=== PATIENT | female | born 1995 | race Caucasian/White ===

== ENCOUNTER 2022-10-07 13:13 | Emergency (ER) | payer OTHER ==
--- OUTSIDE RECORDS SUMMARY | 2022-10-07 13:18 | XMS REPORT | Continuity of Care Document ---
:1995 Author Organization [facility] t Address [address] [place] [address] Care Team Providers Name Role Phone SHARPLESS Primary Care Physician Unavailable LESTER GAN Attending Clinician Unavailable COMPA BRAVO Attending Clinician Unavailable FROYLAN PAYTON Attending Clinician Unavailable COMPA ESCOBEDO Attending Clinician Unavailable Librado Cruz MD Attending Clinician Nader Bell MD Attending Clinician [phone] Attending Clinician Unavailable ARGELIA ELLISON Attending Clinician Unavailable MARY ELISE Attending Clinician Unavailable GRACE MONTEJO Attending Clinician Unavailable ADINA CHACON Attending Clinician Unavailable GUDELIA MALONE Attending Clinician Unavailable ZAIRE LI Admitting Clinician Unavailable SULMA MONTIEL Admitting Clinician Unavailable Payers Payer Name Policy Type Policy Number Effective Date Expiration Date Kwadwo CARDENAS PPO [id number] 2022 00:00:00 [employer] 2 [id number] 2021 00:00:00 MUTUAL INS [facility] CIGPO [id number] 2020 00:00:00 PPO Problems Condition Condition Condition Status Onset Resolution Last Treating Co mments Source Name Details Category Date Date Treatment Clinician Date Gastropare Gastropare Disease Active [facility]: Medical [place] Unintentio Unintentio Disease Active [facility] nal weight nal weight 4-14 Debra k[facility] loss loss 00:00: [place] Dehydratio Dehydratio Disease Active [facility] n n 4-14 [facility] 00:00: [place] Epigastric Epigastric Disease Active [facility] pain pain 4-14 [facility] 00:00: Center Failure to Failure to Disease Active [facility] thrive in thrive in 4-13 [facility] adult adult 00:00: 00 Center Unable to Unable to Disease Active Overview: [facility]-13 [facility] 00:[facility]: g of this Medical 00 note Center might be different from the original. Added automatic ally from request for surgery [id number] Sterilizat Sterilizat Disease Active [facility] ion ion 3-01 [facility] 00:00: Medical 00 Center Abdominal Abdominal Disease Active [facility] 9[facility]18 [facility] affecting affecting 00:00: Medi [place] , , 00 Ce nter antepartum antepartum Allergies, Adverse Reactions, Alerts Allergy Allergy Status Severity Reaction(s) Onset Inactive Treating Comm ents Source Name Type Date Date Clinician No Known DA Active [facility] [place] [facility] 00:[facility]: [facility] 00 [facility] No Known DA Active [facility]ie 3[facility]23 [place] 00:[facility]: [facility]a 00 [facility] Vilazodo Propensi Active seizures [facility] to 9-18 [facility] adverse 00:00: Medical reaction 00 Center s VILAZODO Allergy Active [facility] NE 9-18 00:00: 00 Family History Family Member Diagnosis Comments Start Date Stop Date Source Natural mother Depression [facility] Natural mother Diabetes [facility] Natural mother Mental illness [facility] Social History Social Habit Start Date Stop Date Quantity Comments Source History SDOH [facility] Alcohol Frequency Medical Center History SDOH [facility] Alcohol Std Drinks Medica l Center History SDOH [facility] Alcohol Binge Medical X[facility] History of tobacco Smokes tobacco Me [facility]odist use daily Hospital Tobacco Comment 2021-01-19 2021-01-19 vape [facility] Elmer kes 00:00:00 00:00:00 [facility] Alcohol intake 2018-01-07 2018-01-07 Current Jew 00:00:00 00:00:00 non-drinker of Hospital alcohol (finding) Alcohol Comment 2016-11-30 2016-11-[address] [facility] St Debra kes 00:00:00 00:00:00 [facility] Tobacco use and 2016-06-26 2016-06-[address] [facility] [place] exposure 00:00:00 00:00:00 [facility] Sex Ass[birth year] At [birth year] Jew 00:00:00 00:00:00 Hospital Smoking Status Start Date Stop Date Source Smokes tobacco daily 2018-01-07 00:00:00 [facility] Former smoker 2016-06-26 00:00:00 2016-06-26 00:00:00 [facility] Medications Ordered Filled Start Stop Current Ordering Indication Dosage Frequency Signature Comments Components Source Medication Medication Date Date Medication? Clinician (SIG) Name Name naproxen 2021- No 500mg Q.5D Take 1 Metho di (NAPROSYN) 3-15 04-[address] 500 MG 00:00: 04:59 (500 mg Hospita tablet 00 :00 total) by l mouth 2 (two) times a day with meals for 30 days. ondansetron 2021- No 4mg Q6H Take 1 Met hodi (ZOFRAN) 4 3-15 04-15 tablet (4 st MG tablet 00:00: 04:59 mg total) Ho spita 00 :00 by mouth l every 6 (six) hours for 30 days. traMADoL 2021- No [id number] 50mg Q6H Take 1 Metho di (ULTRAM) 50 3-15 03-21 tablet (50 s t mg tablet 00:00: 04:59 mg total) Ho spita 00 :00 by mouth l every 6 (six) hours as needed for moderate pain for up to 5 days .acute pain. OLANZapine 0 Yes 7.5mg QD Take 7.[address] (ZYPREXA) 9-02 mg by [facility] 7.5 MG 18:01: mouth Medical tablet 45 nightly. Center ondansetron 0 Yes 4mg Take [address] (ZOFRAN) 4 7-08 by mouth. Luke s MG tablet 00:00: Medical 00 Center ondansetron 0 Yes 4mg Q8H Take 1 Meth wade (ZOFRAN) 4 7-08 tablet (4 st MG tablet 00:00: mg total) Hos arelis 00 by mouth l every 8 (eight) hours as needed for nausea or vomiting. scopolamine 0 2- No 1.5mg Place [address] (TRANSDERM- 4-17 04-17 patch (1.5 L ukes SCOP) 1 mg 00:00: 23:59 mg total) M edical over 3 days 00 :00 onto the Cent er patch skin every third day. mirtazapine Yes 15mg QD Take [address] (REMERON 3-29 by mouth [facility] YESENIA-TAB) 15 00:00: nightly. Me dical MG 00 Center disintegrat ing tablet clonazePAM Yes 2mg Q.5D Take [address] (KlonoPIN) 3-18 by mouth 2 Rio es 2 MG tablet 00:00: (two) Medic al 00 times Center daily. busPIRone 0 Yes 10mg Q.5D Take [address] (BUSPAR) 10 3-03 by mouth 2 Debra kes MG tablet 00:00: (two) Medical 00 times Center daily . desvenlafax Yes 50mg QD Take [address] ine 3-03 by mouth [facility]ukes succinate 00:00: daily. Medica l (PRISTIQ) 00 Center 50 MG 24 hr tablet PRAZOSIN Yes 2mg QD Take 2 mg Meth wade HCL 4-[address] (PRAZOSIN 11:14: nightly. Hosp audi ORAL) 17 l QUEtiapine 2018-0 Yes 200mg QD Take 200 Me thodi fumarate ER 4-[address] 50 mg 11:14: mouth Hospita tablet 17 daily. l extended release 24 hr clonAZEPAM 2018-0 Yes 1mg Q.2D Take 1 mg Me thodi (KlonoPIN) 4-[address] 1 MG tablet 11:14: (five) Hosp audi 17 times a l day. Immunizations Ordered Immunization Filled Immunization Date Status Commen ts Source Name Name Covid-19 Vaccine 2021-01-[address] [facility] MRNA (PF) 12yr+ 00:00:00 Medical C enter (Pfizer/BioNTech)(IM M601) MMR 2016-06-29 [facility] Vital Signs Vital Name Observation Time Observation Value Comments Source HEIGHT 2021-06-10 17:58:00 162.6 cm WEIGHT 2021-06-10 17:58:00 50.5 kg HEIGHT 2021-06-10 17:58:00 162.6 cm WEIGHT 2021-06-10 17:58:00 50.5 kg HEIGHT 2021-01-28 08:08:00 154.9 cm WEIGHT 2021-01-28 08:08:00 34.473 kg HEIGHT 2021-01-24 16:00:00 154.9 cm WEIGHT 2021-01-24 16:00:00 34.473 kg HEIGHT 2021-01-28 08:08:00 154.9 cm WEIGHT 2021-01-28 08:08:00 34.473 kg HEIGHT 2021-01-24 16:00:00 154.9 cm WEIGHT 2021-01-24 16:00:00 34.473 kg HEIGHT 2021-01-21 07:30:00 154.9 cm WEIGHT 2021-01-21 07:30:00 39.463 kg WEIGHT 2021-01-20 06:00:00 39.78 kg HEIGHT 2021-01-20 06:00:00 154.9 cm HEIGHT 2021-01-19 19:22:00 154.9 cm WEIGHT 2021-01-19 19:22:00 35.2 kg HEIGHT 2021-01-21 07:30:00 154.9 cm WEIGHT 2021-01-21 07:30:00 39.463 kg WEIGHT 2021-01-20 06:00:00 39.78 kg HEIGHT 2021-01-20 06:00:00 154.9 cm HEIGHT 2021-01-19 19:22:00 154.9 cm WEIGHT 2021-01-19 19:22:00 35.2 kg HEIGHT 2020-12-31 16:03:00 154.9 cm WEIGHT 2020-12-31 16:03:00 38.556 kg HEIGHT 2020-12-31 16:03:00 154.9 cm WEIGHT 2020-12-31 16:03:00 38.556 kg Systolic blood 2021-12-21 11:07:00 102 mm[Hg] [facility] pressure Diastolic blood 2021-12-21 11:07:00 69 mm[Hg] [facility] pressure Heart rate 2021-12-21 11:07:00 68 /min [facility] Respiratory rate 2021-12-21 11:07:00 16 /min [facility] Oxygen saturation in 2021-12-21 11:07:00 99 /min [facility] Arterial blood by Pulse oximetry Body temperature 2021-12-21 10:04:42 36.44 Laenna [facility] Body height 2021-12-21 10:02:00 154.9 cm [facility] Body weight 2021-12-21 10:02:00 52.164 kg [facility] BMI 2021-12-21 10:02:00 21.73 kg/m2 [facility] Procedures Procedure Date / Time Performing Clinician Source Performed US PELVIC TRANSABDOMINAL 2021-12-21 11:48:27 Librado Cruz [facility] US PELVIC TRANSVAGINAL 2021-12-21 11:47:46 [facility] PELVIS W 2021-12-21 10:50:49 Librado Cruz [facility] CONTRAST URINE CULTURE 2021-12-21 10:19:00 [facility] HC COMPLETE BLD COUNT 2021-12-21 10:18:00 [facility] W/AUTO DIFF COMPREHENSIVE METABOLIC 2021-12-21 10:18:00 Librado Cruz [facility] PANEL ESTIMATED GFR 2021-12-21 10:18:00 Librado Cruz [facility] URINALYSIS 2021-12-21 10:13:00 Librado Cruz [facility] HCG QUALITATIVE, URINE 2021-12-21 10:13[facility] S[facility]EN Plan of Care Planned Activity Planned Date Details Comments Source Future Scheduled 2026-05-09 DTAP/TDAP/TD VACCINES [facility] Test 00:00:00 (5 - Td or Tdap) [code Medic al Center = DTAP/TDAP/TD VACCINES (5 - Td or Tdap)] Future Scheduled 2022-10-07 Pneumococcal Vaccine: [facility] Test 13:16:25 Pediatrics (0 to 5 Years) and At-Risk Patients (6 to 64 Years) (1 - PCV) [code = Pneumococcal Vaccine: Pediatrics (0 to 5 Years) and At-Risk Patients (6 to 64 Years) (1 - PCV)] Future Scheduled 2022-10-07 Hepatitis C screening [facility] Test 13:16:25 (procedure) [code = 861928251] Future Scheduled 2022-10-07 Screening for [facility] Test 13:16:25 malignant neoplasm of cervix (procedure) [code = 627547829] Future Scheduled 2022-10-07 COVID-19 VACCINE (2 - [facility] Test 13:16:25 Pfizer series) [code = COVID-19 VACCINE (2 - Pfizer series)] Future Scheduled 2022-10-07 INFLUENZA VACCINE Method [facility] Test 13:16:25 [code = INFLUENZA VACCINE] Future Scheduled 2022-06-[address] [facility] Test 00:00:00 Counseling and Medical Cente r Screening (12+) [code = Tobacco Cessation Counseling and Screening (12+)] Future Scheduled 2022-06-09 INFLUENZA VACCINE (#1) [facility] Test 00:00:00 [code = INFLUENZA Medical Ce nter VACCINE (#1)] Future Scheduled 2021-10-[address] [facility] Test 00:00:00 (12+) [code = Medical Center DEPRESSION SCREENING (12+)] Future Scheduled 2021-02-04 COVID-19 VACCINE (2 - [facility] Test 00:00:00 Pfizer series) [code = [facility] COVID-19 VACCINE (2 - Pfizer series)] Future Scheduled [address] [facility] Test 00:00:00 malignant neoplasm of [facility] cervix (procedure) [code = 731616366] Future Scheduled 2011 HEPATITIS C SCREENING [facility] Test 00:00:00 [code = HEPATITIS C [facility] SCREENING] Encounters Start End Encounter Admission Attending Care Care Encounter Source Date/Time Date/Time Type Type Clinicians Facility Department ID 2022-02-07 Outpatient [facility] [id number] [place] 09:09:12 [id number] [facility] 2020-12-29 Inpatient [facility] [id number] [facility] 22:14:08 69 [facility] 2022-05-23 2022-05-23 Outpatient LAWRENCE COMPA MADINA CHILEL [id number] [place] 15:00:00 15:00:00 Seybol d 2022-02-16 2022-02-16 Emergency E FITO, MHTW MHTW [id number] MHTW 01:14:00 04:55:00 FROYLAN 2022-01-19 2022-01-20 Emergency E FANNY, MHTW MHTW [id number] MHTW 22:46:00 00:05:00 COMPA 2021-12-21 2021-12-21 Emergency Librado Cruz C. [id number] Methodi 05:09:00 07:34:[address] Nader Bell [id number] [id number] Hospit a .[id number] l .8 2021-12-21 2021-12-21 Emergency LISETTE [facility] [id number] [place] 00:00:00 00:00:00 NADER Galeas [facility] 2021-11-01 2021-11-01 Outpatient ALB22-ELH MADINA CHILEL [id number] [place] 17:10:00 17:10:00 Seybol d 2021-11-01 2021-11-01 Outpatient MADINA ELLISON [id number] [place] 16:00:00 16:00:00 ARGELIA landrum 2021-06-10 2021-06-10 Emergency ER [facility] Emergency [id number] [facility] 17:47:00 17:47:00 2021-04-14 2021-04-15 Emergency NIKIA, [facility] Liane [id number] [place] 00:00:00 00:00:00 GRACE Devin [facility] 2021-02-04 2021-02-04 Outpatient [facility] [id number] [facility] 00:00:00 00:00:00 2021-01-24 2021-01-24 Emergency ER [facility] Emergency [id number] [facility] 15:29:00 15:29:00 2021-01-19 2021-01-19 Emergency ER [facility] Emergency [id number] [facility] 18:56:00 18:56:00 2021-01-14 2021-01-14 Outpatient [facility] [id number] [facility] 00:00:00 00:00:00 2020-12-31 2020-12-31 Emergency ER [facility] Emergency [id number] [facility] 15:37:00 15:37:00 2017-09-29 2017-09-29 Outpatient DISHA DRAPER [id number] [place] 12:04:00 12:04:00 01 ayden Coleman 2017-09-13 2017-09-13 Outpatient DISHA DRAPER [id number] [place] 12:58:00 12:58:00 00 ayden Coleman Results Test Description Test Time Test Comments Results Result Sourc e Comments RAD, CHEST, 1 2021-06-10 Reason for VIEW, NON DEPT 21:10:00 exam:->CHEST PAINReason for CHI exam:->EMESISIs [facility] the patient CENTERName: SKYLER, ?->N/Tatianna MARION THACKER : ould this be 1995 Sex: performed at the F bedside?->Yes FI NAL REPORT EXAM/TECHNIQUE: Single view frontal radiograph of the chest. INDICATION: Chest pain, emesis. COMPARISON: None. FINDINGS: Devices/Objects: None. Lungs: No focal consolidation. No pleural effusion. No pneumothorax. Heart/Mediastinum: No cardiomegaly. No interstitial thickening. Osseous: No acute osseous process. No suspicious osseous lesion. Upper abdomen: Unremarkable. Impression: No acute cardiopulmonary process. Signed: Jaswinder Townsend MDReport Verified Date/Time: 06/10/2021 21:10:14 -COV2/RT-PCR ([facility]) 2021-06-10 21:08:00 Test Item Value Reference Range Interpretation Comme nts SARS-COV2/RT-PCR (test code = Negative Negative The SARS-CoV-2 target nucleic [id number]) acids are not d etected in this specimen. Negat luis antonio results do not preclude SA RS-CoV-2 infection and s hould not be used as the sole bas is for patient management deci sions. Negative results must be combined with clinical observ ations, patient history, and ep idemiological information. A false negative result may occu r if a specimen is improperly c ollected, transported or handled. This SARS CoV-2 test is a rapid, real-time RT-PC R test intended for the qualita tive detection of nucleic acid fr om SARS-CoV-2 in a nasopharyngea l swab specimen collected from individuals suspected of CO VID-19 by their healthcare doctors hospital ider. This test has been authorized by FDA under an EUA for use by authorized laboratories. This test is only authorized for the duration of the declaration that circumstances exist justifying the authorization of emergency use of in vitro diagnostic tests for detection and/or diagnosis of COVID-19 under Section 564(b)(1) of the Federal Food, Drug and Cosmetic Act, 21 U.S.C. 360bbb-3(b)(1), unless the authorization is terminated or revoked sooner. Fact Sheet for Healthcare Providers: https://www.[employer] m/Documents/Xpert%20Xpress%20SARS%20CoV-2/Fact%20Sheets/302-3802%28QDTY-CYP-6%20 HEALTHCARE%20PROVIDERS%20FACT%20SHEET.pdf Fact Sheet for Healthcare Patients: https://www.OptMed/Documents/Xpert%20Xp ress%20SARS%20CoV-2/Fact%20Sheets/302-3801%31KNQC-DPL-7%20PATIENT%20FACT%20SHEET .pdfURINALYSIS W/ REFLEX URINE [id number] 20:49:00 Test Item Value Reference Range Interpretation Comments COLOR (BEAKER) (test code = 470) Yellow CLARITY (BEAKER) (test code = 469) Hazy SPECIFIC GRAVITY UA (BEAKER) (test 1.031 1.001-1.035 code = 468) PH UA (BEAKER) (test code = 467) 6.0 5.0-8.0 PROTEIN UA (BEAKER) (test code = 30 mg/dL Negative A 464) GLUCOSE UA (BEAKER) (test code = Negative Negative 365) KETONES UA (BEAKER) (test code = 20 mg/dL Negative A 371) BILIRUBIN UA (BEAKER) (test code = Negative Negative 462) BLOOD UA (BEAKER) (test code = 461) Negative Negative NITRITE UA (BEAKER) (test code = Negative Negative 465) LEUKOCYTE ESTERASE UA (BEAKER) (test Negative Negative code = 466) UROBILINOGEN UA (BEAKER) (test code < mg/dL 0.2-1.0 = 463) RBC UA (BEAKER) (test code = 519) 3 /HPF WBC UA (BEAKER) (test code = 520) 2 /HPF BACTERIA (BEAKER) (test code = 517) Rare MUCUS (BEAKER) (test code = 1574) Few SQUAMOUS EPITHELIAL (BEAKER) (test 5 /HPF code = 516) SOURCE(BEAKER) (test code = 2795) Incident Response Specialist ID - [auto]Incident Response Specialist ID - techPREGNANCY SCREEN, [id number] 20:33:00 Test Item Value Reference Range Interpretation Comments TEST URINE (BEAKER) (test Negative code = 583) TROPONIN [id number] 20:08:00 Test Item Value Reference Range Interpretation Comments TROPONIN I (BEAKER) (test code = 0.01 ng/mL 0.00-0.15 397) Troponin I (TnI) levels must be interpreted in the context of the presenting symptoms and the clinical findings. Elevated TnI levels indicate myocardial damage, but are not specific for ischemic heart disease. Elevated TnI levels are seen in patients with other cardiac conditions (including myocarditis and congestive heart failure), and slight TnI elevations occur in patients with other conditions, including sepsis, renal failure, acidosis, acute neurological disease, and persistent tachyarrhythmia.Incident Response Specialist ID - [id number] METABOLIC [id number] 20:02:00 Test Item Value Reference Range Interpretation Comments TOTAL PROTEIN 8.2 gm/dL 6.0-8.5 (BEAKER) (test code = 770) ALBUMIN (BEAKER) 4.7 g/dL 3.5-5.0 (test code = 1145) ALKALINE PHOSPHATASE 64 U/L 30-115 (BEAKER) (test code = 346) BILIRUBIN TOTAL 0.4 mg/dL 0.1-1.3 (BEAKER) (test code = 377) SODIUM (BEAKER) (test 141 meq/L 135-148 code = 381) POTASSIUM (BEAKER) 3.9 meq/L 3.5-5.5 (test code = 379) CHLORIDE (BEAKER) 104 meq/L 98-106 (test code = 382) CO2 (BEAKER) (test 23 meq/L 20-31 code = 355) BLOOD UREA NITROGEN 16 mg/dL 10-26 (BEAKER) (test code = 354) CREATININE (BEAKER) 0.77 mg/dL 0.50-1.20 (test code = 358) GLUCOSE RANDOM 83 mg/dL 70-110 (BEAKER) (test code = 652) CALCIUM (BEAKER) 9.8 mg/dL 8.5-10.5 (test code = 697) AST (SGOT) (BEAKER) 18 U/L 5-40 (test code = 353) ALT (SGPT) (BEAKER) 10 U/L 6-50 (test code = 347) EGFR (BEAKER) (test 89 mL/min/1.73 ESTIMA ROSENDO GFR IS code = 1092) sq m NOT ACCURATE CREATININE CLEARANCE IN PREDICTING GLOMERULAR FILTRATION RATE . ESTIMATED GFR I S NOT APPLICABLE FOR DIALYSIS PATIEN TS. Incident Response Specialist ID - [id number] 19:55:00 Test Item Value Reference Range Interpretation Comments D-DIMER QUANTITATIVE (BEAKER) 0.22 MG/L FEU <0.50 (test code = 671) Intended Use: The D-Dimer Assay can be used to aid in the diagnosis of Deep Vein Thrombosis (DVT) and Pulmonary Embolism Disease (PED).In patients with low pre- test probability, various studies concerning STA Liatest D-dimer test have reported that with a cutoff value of 0.50 MG/L FEU, the Negative Predictive Value (NPV) regarding the exclusion of thrombosis is within 95-100% range.CBC W/PLT COUNT & AUTO [id number] 19:42:00 Test Item Value Reference Range Interpretation Comments WHITE BLOOD CELL COUNT (BEAKER) 10.9 K/ L 4.0-10.0 H (test code = 775) RED BLOOD CELL COUNT (BEAKER) 4.60 M/ L 4.00-5.00 (test code = 761) HEMOGLOBIN (BEAKER) (test code = 14.7 GM/DL 12.0-15.5 410) HEMATOCRIT (BEAKER) (test code = 42.2 % 36.0-46.0 411) MEAN CORPUSCULAR VOLUME (BEAKER) 91.7 fL 82.0-99.0 (test code = 753) MEAN CORPUSCULAR HEMOGLOBIN 32.0 pg 27.0-33.0 (BEAKER) (test code = 751) MEAN CORPUSCULAR HEMOGLOBIN CONC 34.8 GM/DL 32.0-36.0 (BEAKER) (test code = 752) RED CELL DISTRIBUTION WIDTH 11.8 % 12.0-15.0 L (BEAKER) (test code = 412) PLATELET COUNT (BEAKER) (test 275 K/CU MM 150-430 code = 756) MEAN PLATELET VOLUME (BEAKER) 9.9 fL 6.0-11.5 (test code = 754) NUCLEATED RED BLOOD CELLS 0 /100 WBC 0-0 (BEAKER) (test code = 413) NEUTROPHILS RELATIVE PERCENT 65 % (BEAKER) (test code = 429) LYMPHOCYTES RELATIVE PERCENT 29 % (BEAKER) (test code = 430) MONOCYTES RELATIVE PERCENT 5 % (BEAKER) (test code = 431) EOSINOPHILS RELATIVE PERCENT 0 % (BEAKER) (test code = 432) BASOPHILS RELATIVE PERCENT 1 % (BEAKER) (test code = 437) NEUTROPHILS ABSOLUTE COUNT 7.14 K/ L 1.80-8.00 (BEAKER) (test code = 670) LYMPHOCYTES ABSOLUTE COUNT 3.14 K/ L 1.48-4.50 (BEAKER) (test code = 414) MONOCYTES ABSOLUTE COUNT (BEAKER) 0.52 K/ L 0.00-1.30 (test code = 415) EOSINOPHILS ABSOLUTE COUNT 0.04 K/ L 0.00-0.50 (BEAKER) (test code = 416) BASOPHILS ABSOLUTE COUNT (BEAKER) 0.06 K/ L 0.00-0.20 (test code = 417) IMMATURE GRANULOCYTES-RELATIVE 0 % 0-0 PERCENT (BEAKER) (test code = 2801) RAD, ABDOMEN/KUB, 1 VIEW [id number] 16:12:00Reason for exam:- >obstructionShould this be performed at the bedside?->Yes [facility] 1995 Sex: FFINAL REPORT X-ray abdomen, one view AP History: obstruction Comparison: 01/20/2021 and 01/26/2021. Discussion: No dilated loops of bowel are identified. Gaseous distention of the sigmoid colon is noted. Moderate stool is noted throughout the right colon.No acute osseous abnormality.No suspicious calcification. IMPRESSION: Nonobstructive bowel gas pattern. Air is identified within the distal colon and stool is identified within the proximal colon, nonspecific. Signed: Paulette ReisMDReport Verified Date/Time: 01/28/2021 16:12:19 Reading Location: [facility] Radiology Reading Room RAD, ABDOMEN/KUB, 1 VIEW AP 2021-01-26 15:50:00Reason for exam:->Enteric tube placement verification [facility] 1995 Sex: FFINAL REPORT Abdomen x-ray Clinical Diagnosis: Enteric tube placementComparison: 01/20/2021Views: Single supine view the abdomen obtained IMPRESSION:Enteric tube identified coursing below the diaphragm with distal tip terminating within the left upper quadrant in the expected region of the gastric body. There is moderate gaseous distention of the stomach. Remainder of the examination is unchanged from prior examination. Signed: Bartolo Aiken MDReport Verified Date/Time: 01/26/2021 15:50:41 Reading Location: [facility] Diagnostic Imaging Reading Room - [facility] 1.310.12 RAPID DRUG SCREEN, [id number] 09:55:00 Test Item Value Reference Range Interpretation Comments BARBITURATE URINE Negative Negative (BEAKER) (test code = 725) BENZODIAZEPINE SCREEN Positive Negative A URINE (BEAKER) (test code = 726) COCAINE (METAB.) SCREEN Negative Negative (BEAKER) (test code = 1164) METHADONE SCREEN (BEAKER) Negative Negative (test code = 1436) OPIATE SCREEN URINE Positive Negative A (BEAKER) (test code = 734) CANNABINOID SCREEN URINE Positive Negative A (BEAKER) (test code = 727) AMPH/METHAMPH SCREEN Negative Negative (BEAKER) (test code = 1438) PHENCYCLIDINE SCREEN Negative Negative URINE (BEAKER) (test code = 608) PH UA (BEAKER) (test code 5.0 5.0-8.0 pH testing performed = 467) by manual metho d DRUG CUTOFF CONC.Cocaine 300 ng/mL Cannabinoid 50 ng/mLBenzodiazepine 200 ng/mLBarbiturate 200 ng/mLPhencyclidine 25 ng/mLOpiate 300 ng/mLMethadone 300 ng/mLAmphetamine/ 1000 ng/mL MethamphetamineThisassay provides an unconfirmed qualitative test result for the clinical management of patients in emergency situations. Chain of custody not maintained. Some yaon-ipt-hpofqqt medications, as well as adulterants, may cause inaccurate results. Clinical correlation should be applied. A more comprehensive drug screen or confirmation of a detected drug may be performed upon request.Incident Response Specialist ID - [id number], ABDOMINAL, [id number] 02:14:00Abdomen limited area? Add comment if clarification is needed.->Gall BladderReason for exam:->weight loss, abdominal pain [facility] 1995 Sex: FFINAL REPORT History: Abdominal pain Abdominal ultrasound dated 01/25/2021 Comparison: None Comment: Real-time transabdominal ultrasound of the right upper quadrant abdomen was performed. Liver: 14.3 cm , normal. Normal echogenicity. No focal lesions. Gallbladder: No gallstones. No gallbladder wall thickening. No pericholecystic fluid. No sonographic Whitaker's sign. Transverse diameter: 1.3 cm. Biliary tree: No intrahepatic ductal dilatation. CBD: 2 mm. MPV: 10 mm Pancreas: Unremarkable. Right kidney: 9.8 x 4.2 x 4.5 cm. Normal echogenicity. No ascites is present in the abdomen. The visualized abdominal aorta is normal in caliber. The IVC and Hepatic veins are patent. Impression: No ultrasound abnormality to explain the patient's pain. Signed: Ar Chinchilla MDReport Verified Date/Time: 01/26/2021 02:14:17 SARS-COV2/RT-PCR ([facility]) 2021-01-25 00:23:00 Test Item Value Reference Range Interpretation Comments SARS-COV2/RT-PCR (test code Negative Not Detected, Negative, = [id number]) See external report for linked test SARS-COV-2 PERFORMING LAB [facility] (test code = 1548079) Negative results do not preclude SARS-CoV-2 infection and should not be used as the sole basis for treatment or other patient management decisions. Negative results must be combined with clinical observations, patient history and epidemiological information. A false negative may occur if a specimen is improperly collected, transported or handled.This SARS CoV-2 test is a rapid, real time RT-PCR test intended for the qualitative detection of nucleic acid from the SARS CoV-2 in nasopharyngeal specimens collected from individuals suspected of COVID-19 by their healthcare provider.The [employer] Xpert Xpress SARS-CoV-2 test is only for use under the Food and Drug Administration's Emergency Use Authorization. This EUA will be effective until the declaration that circumstances exist justifying the authorization of the emergency use of in vitro diagnostic tests for detection and/ or diagnosis of COVID-19 is terminated under Section 564 (b) (2) of the act or the EUA is revoked under Section 564 (g) of theAct.Fact Sheet for Healthcare Providers:https://www.C[employer].com/Documents/Xpert%20Xpress%20SARS%20CoV -2/Fact%20Sheets/302-3802%14CUGV-NNV-6%20HEALTHCARE%20PROVIDERS%20FACT%20SHEET.p dfFact Sheet for Healthcare Patients:https://www.OptMed/Documents/Xpert%20Xpress%20SARS%20CoV-2/Fact%20 Sheets/302-3801%33CPVM-GMZ-2%20PATIENT%20FACT%20SHEET.pdfPerforming Laboratory:[facility], [place] [address]AJILUHHUCMSTP METABOLIC [id number] 19:58:00 Test Item Value Reference Range Interpretation Comments TOTAL PROTEIN 7.8 gm/dL 6.0-8.5 (BEAKER) (test code = 770) ALBUMIN (BEAKER) 4.8 g/dL 3.5-5.0 (test code = 1145) ALKALINE PHOSPHATASE 57 U/L 30-115 (BEAKER) (test code = 346) BILIRUBIN TOTAL 0.5 mg/dL 0.1-1.3 (BEAKER) (test code = 377) SODIUM (BEAKER) (test 137 meq/L 135-148 code = 381) POTASSIUM (BEAKER) 3.6 meq/L 3.5-5.5 (test code = 379) CHLORIDE (BEAKER) 101 meq/L 98-106 (test code = 382) CO2 (BEAKER) (test 23 meq/L 20-31 code = 355) BLOOD UREA NITROGEN 16 mg/dL 10-26 (BEAKER) (test code = 354) CREATININE (BEAKER) 0.76 mg/dL 0.50-1.20 (test code = 358) GLUCOSE RANDOM 80 mg/dL 70-110 (BEAKER) (test code = 652) CALCIUM (BEAKER) 9.4 mg/dL 8.5-10.5 (test code = 697) AST (SGOT) (BEAKER) 25 U/L 5-40 (test code = 353) ALT (SGPT) (BEAKER) 28 U/L 6-50 (test code = 347) EGFR (BEAKER) (test 91 mL/min/1.73 ESTIMA ROSENDO GFR IS code = 1092) sq m NOT ACCURATE CREATININE CLEARANCE IN PREDICTING GLOMERULAR FILTRATION RATE . ESTIMATED GFR I S NOT APPLICABLE FOR DIALYSIS PATIEN TS. [id number] 19:58:00 Test Item Value Reference Range Interpretation Comments LIPASE (BEAKER) (test code = 749) 25 U/L 8-78 CBC W/PLT COUNT & AUTO [id number] 19:31:00 Test Item Value Reference Range Interpretation Comments WHITE BLOOD CELL COUNT (BEAKER) 10.9 K/ L 4.0-10.0 H (test code = 775) RED BLOOD CELL COUNT (BEAKER) 4.36 M/ L 4.00-5.00 (test code = 761) HEMOGLOBIN (BEAKER) (test code = 13.7 GM/DL 12.0-15.5 410) HEMATOCRIT (BEAKER) (test code = 40.2 % 36.0-46.0 411) MEAN CORPUSCULAR VOLUME (BEAKER) 92.2 fL 82.0-99.0 (test code = 753) MEAN CORPUSCULAR HEMOGLOBIN 31.4 pg 27.0-33.0 (BEAKER) (test code = 751) MEAN CORPUSCULAR HEMOGLOBIN CONC 34.1 GM/DL 32.0-36.0 (BEAKER) (test code = 752) RED CELL DISTRIBUTION WIDTH 12.0 % 12.0-15.0 (BEAKER) (test code = 412) PLATELET COUNT (BEAKER) (test 294 K/CU MM 150-430 code = 756) MEAN PLATELET VOLUME (BEAKER) 9.8 fL 6.0-11.5 (test code = 754) NUCLEATED RED BLOOD CELLS 0 /100 WBC 0-0 (BEAKER) (test code = 413) NEUTROPHILS RELATIVE PERCENT 61 % (BEAKER) (test code = 429) LYMPHOCYTES RELATIVE PERCENT 32 % (BEAKER) (test code = 430) MONOCYTES RELATIVE PERCENT 5 % (BEAKER) (test code = 431) EOSINOPHILS RELATIVE PERCENT 1 % (BEAKER) (test code = 432) BASOPHILS RELATIVE PERCENT 1 % (BEAKER) (test code = 437) NEUTROPHILS ABSOLUTE COUNT 6.67 K/ L 1.80-8.00 (BEAKER) (test code = 670) LYMPHOCYTES ABSOLUTE COUNT 3.49 K/ L 1.48-4.50 (BEAKER) (test code = 414) MONOCYTES ABSOLUTE COUNT (BEAKER) 0.56 K/ L 0.00-1.30 (test code = 415) EOSINOPHILS ABSOLUTE COUNT 0.13 K/ L 0.00-0.50 (BEAKER) (test code = 416) BASOPHILS ABSOLUTE COUNT (BEAKER) 0.06 K/ L 0.00-0.20 (test code = 417) IMMATURE GRANULOCYTES-RELATIVE 0 % 0-0 PERCENT (BEAKER) (test code = 2801) GI PATHOGEN PROFILE BY [id number] 14:50:00 Test Item Value Reference Range Interpretation Comments CAMPYLOBACTER (PCR) (test code = Not detected Not detected 20160412) PLESIOMONAS SHIGELLOIDES (PCR) Not detected Not detected (test code = 20160416) SALMONELLA (PCR) (test code = Not detected Not detected ) YERSINIA ENTEROCOLITICA (PCR) Not detected Not detected (test code = 20160509) VIBRIO CHOLERAE (PCR) (test code Not detected Not detected = 20160510) ENTEROAGGREGATIVE E. COLI (EAEC) Not detected Not detected BY PCR (test code = 20160511) ENTEROPATHOGENIC E. COLI (EPEC) Not detected Not detected BY PCR (test code = 20160512) ENTEROTOXIGENIC E. COLI (ETEC) Not detected Not detected LT/ST BY PCR (test code = 20160513) SHIGA-LIKE TOXIN-PRODUCING E. Not detected Not detected COLI (STEC) STX1/STX2 (test code = 20160514) E. COLI O157 (PCR) (test code = 20160515) SHIGELLA/ENTEROINVASIVE E. COLI Not detected Not detected (EIEC) BY PCR (test code = 20160516) CRYPTOSPORIDIUM (PCR) (test code Not detected Not detected = 20160517) CYCLOSPORA CAYETANENSIS (PCR) Not detected Not detected (test code = ) ENTAMOEBA HISTOLYTICA (PCR) Not detected Not detected (test code = 20160609) GIARDIA LAMBLIA (PCR) (test code Not detected Not detected = 20160610) ADENOVIRUS F 40/41 (PCR) (test Not detected Not detected code = 20160611) ASTROVIRUS (PCR) (test code = Not detected Not detected 20160612) NOROVIRUS GI/GII (PCR) (test Not detected Not detected code = 20160613) ROTAVIRUS A (PCR) (test code = Not detected Not detected 20160614) SAPOVIRUS (I, II, IV, V) BY PCR Not detected Not detected (test code = 6368678) VIBRIO (PARAHAEMOLYTICUS, Not detected Not detected VULNIFICUS) (test code = 3438285) Other viruses, parasites and bacteria not targeted by this PCR panel cannot be excluded; therefore clinical correlation and follow up of serology, culture results, and other molecular studies is required. The results are not intended to be used as the sole means for clinical diagnosis or patient management decisions. This sample was tested at the [facility] using the [employer] Gastrointestinal Panel. It is FDA cleared and has been verified and approved by the [facility] for clinical use. This laboratory is CLIA-certified and College ofAmerican Pathologists (CAP)-accredited to perform high complexity testing.C. DIFFICILE GDH [id number] 13:50:00 Test Item Value Reference Range Interpretation Comments CDT TOXIN (test code Negative Negative = [id number]) CDT GDH ANTIGEN (test Negative Negative No ind ication of code = [id number]) Clostridi um difficile infection and n o colonization. Discontinue ent dada isolation and t herapy. Testing performed by [employer] Rapid Cassette Assay. For GDH, published sensitivity of the assay is 98.7% compared to cytotoxicity testing. For Toxin AB, published sensitivity is 87.8% and specificity 99.4% compared to cytotoxicity testing.Verification of kit performance was done by the [facility] prior to clinical use.RAPID DRUG SCREEN, [id number] 19:35:00 Test Item Value Reference Range Interpretation Comments BARBITURATE URINE (BEAKER) (test Negative Negative code = 725) BENZODIAZEPINE SCREEN URINE (BEAKER) Positive Negative A (test code = 726) COCAINE (METAB.) SCREEN (BEAKER) Negative Negative (test code = 1164) METHADONE SCREEN (BEAKER) (test code Negative Negative = 1436) OPIATE SCREEN URINE (BEAKER) (test Negative Negative code = 734) CANNABINOID SCREEN URINE (BEAKER) Positive Negative A (test code = 727) AMPH/METHAMPH SCREEN (BEAKER) (test Negative Negative code = 1438) PHENCYCLIDINE SCREEN URINE (BEAKER) Negative Negative (test code = 608) PH UA (BEAKER) (test code = 467) 6.5 5.0-8.0 DRUG CUTOFF CONC.Cocaine 300 ng/mL Cannabinoid 50 ng/mLBenzodiazepine 200 ng/mLBarbiturate 200 ng/mLPhencyclidine 25 ng/mLOpiate 300 ng/mLMethadone 300 ng/mLAmphetamine/ 1000 ng/mL MethamphetamineThis assay provides an unconfirmed qualitative test result for the clinical management of patients in emergency situations. Chain of custody not maintained. Some rows-rhi-urlgowz medications, as well as adulterants, may cause inaccurate results. Clinical correlation should be applied. A more comprehensive drug screen or confirmation of a detected drug may be performed upon request.Incident Response Specialist ID - [id number], ABDOMEN/KUB, 1 VIEW [id number] 17:14:00Reason for exam:->early satiety [facility] 1995 Sex: FFINAL REPORT EXAM: KUB CLINICAL HISTORY: Early satiety FINDINGS: Air- filled mildly prominent stomach is noted. In addition, mild to moderate retained feces is seen in the ascending colon. The regional osseous structures is unremarkable. There is no evidence of pathological calcifications or pneumoperitoneum. Signed: Sujatha Harkins MDReport Verified Date/Time: 01/20/2021 17:14:38 Reading Location: [facility] Radiology Reading Room GASTRIC EMPTYING STUDY, [id number] 15:48:00Unlisted Reason for Exam - Click Yes and Enter Reason Below->NoReason for exam:->early satietyand poor appetite [facility] : 1995 Sex: FFINAL REPORT PROCEDURE: GASTRIC EMPTYING STUDY with Liquids CPT CODE: 43819 INDICATION: Early satiety and poor appetite. PROTOCOL: 0.5 mCi of Tc-99m sulfur colloid was administered orally in 240 ml of orange juice. Serial images of the upper abdomen were obtained in the ABIDA projection for 90 minutes. Gastric emptying half time was calculated by the linear fit method. FINDINGS: There is slowly progressive emptying of gastric contents into the small bowel. The half- emptying time is calculated to be 130 minutes. IMPRESSION: Markedly delayed gastric emptying of a liquid meal. Signed:Da Wilcox MDReport Verified Date/Time: 01/20/2021 15:48:43 Reading Location: [address] Reading Room SARS-COV2/RT-PCR ([facility])2021-01-20 13:08:00 Test Item Value Reference Range Interpretation Comments SARS-COV2/RT-PCR (test code Negative Not Detected, Negative, = [id number]) See external report for linked test SARS-COV-[address] [facility] (test code = 9480944) Negative results do not preclude SARS-CoV-2 infection and should not be used as the sole basis for patient management decisions. Negative results must be combined with clinical observations, patient history, and epidemiological information. A false negative result may occur if a specimen is improperly collected, transported or handled.The limit of detection for this assay is 250 copies/mL.This SARS CoV-2 test is a rapid, real-time RT-PCR test intended for the qualitative detection of nucleic acid from SARS-CoV-2 in a nasopharyngeal swab specimen collected from individuals suspected of COVID-19 by their healthcare provider.This test has not been Food and Drug Administration (FDA) cleared or approved and has been authorized by FDA under an Emergency Use Authorization (EUA). This EUA will be effective until the declaration that circumstances exist justifying the authorization of the emergency use of in vitro diagnostic tests for detection and/or diagnosis of COVID-19 is terminated under Section 564(b)(2) of the Act or the EUA is revoked under Section 564(g) of the Act.Fact Sheet for Healthcare Pro viders:https://www.OptMed/Documents/Xpert%20Xpress%20SARS%20CoV-2/Fact%20Sh eets/302-3802%25KOOX-KAQ-8%20HEALTHCARE%20PROVIDERS%20FACT%20SHEET.pdfFact Sheet for Healthcare Patients:https://www.[employer]/Documents/Xpert%20Xpress%20SARS%20CoV-2/Fact%20Sheets/302-3801%20SARS-COV -2%20PATIENT%20FACT%20SHEET.pdfPerforming Laboratory:[place] [address], [place] [address]FHOXF METABOLIC [id number] 05:11:00 Test Item Value Reference Range Interpretation Comments SODIUM (BEAKER) 141 meq/L 135-148 (test code = 381) POTASSIUM (BEAKER) 3.8 meq/L 3.5-5.5 (test code = 379) CHLORIDE (BEAKER) 110 meq/L 98-106 H (test code = 382) CO2 (BEAKER) (test 25 meq/L 20-31 code = 355) BLOOD UREA NITROGEN 13 mg/dL 10-26 (BEAKER) (test code = 354) CREATININE (BEAKER) 0.66 mg/dL 0.50-1.20 (test code = 358) GLUCOSE RANDOM 75 mg/dL 70-110 (BEAKER) (test code = 652) CALCIUM (BEAKER) 8.1 mg/dL 8.5-10.5 L (test code = 697) EGFR (BEAKER) (test 107 mL/min/1.73 ESTIM ATED GFR IS code = 1092) sq m NOT ACCURATE CREATININE CLEARANCE IN PREDICTING GLOMERULAR FILTRATION RATE . ESTIMATED GFR I S NOT APPLICABLE FOR DIALYSIS PATIEN TS. Incident Response Specialist ID - [id number] W/PLT COUNT & AUTO [id number] 04:51:00 Test Item Value Reference Range Interpretation Comments WHITE BLOOD CELL COUNT (BEAKER) 6.0 K/ L 4.0-10.0 (test code = 775) RED BLOOD CELL COUNT (BEAKER) 3.54 M/ L 4.00-5.00 L (test code = 761) HEMOGLOBIN (BEAKER) (test code = 11.1 GM/DL 12.0-15.5 L 410) HEMATOCRIT (BEAKER) (test code = 33.1 % 36.0-46.0 L 411) MEAN CORPUSCULAR VOLUME (BEAKER) 93.5 fL 82.0-99.0 (test code = 753) MEAN CORPUSCULAR HEMOGLOBIN 31.4 pg 27.0-33.0 (BEAKER) (test code = 751) MEAN CORPUSCULAR HEMOGLOBIN CONC 33.5 GM/DL 32.0-36.0 (BEAKER) (test code = 752) RED CELL DISTRIBUTION WIDTH 12.1 % 12.0-15.0 (BEAKER) (test code = 412) PLATELET COUNT (BEAKER) (test 187 K/CU MM 150-430 code = 756) MEAN PLATELET VOLUME (BEAKER) 10.0 fL 6.0-11.5 (test code = 754) NUCLEATED RED BLOOD CELLS 0 /100 WBC 0-0 (BEAKER) (test code = 413) NEUTROPHILS RELATIVE PERCENT 33 % (BEAKER) (test code = 429) LYMPHOCYTES RELATIVE PERCENT 56 % (BEAKER) (test code = 430) MONOCYTES RELATIVE PERCENT 6 % (BEAKER) (test code = 431) EOSINOPHILS RELATIVE PERCENT 4 % (BEAKER) (test code = 432) BASOPHILS RELATIVE PERCENT 1 % (BEAKER) (test code = 437) NEUTROPHILS ABSOLUTE COUNT 2.00 K/ L 1.80-8.00 (BEAKER) (test code = 670) LYMPHOCYTES ABSOLUTE COUNT 3.37 K/ L 1.48-4.50 (BEAKER) (test code = 414) MONOCYTES ABSOLUTE COUNT (BEAKER) 0.35 K/ L 0.00-1.30 (test code = 415) EOSINOPHILS ABSOLUTE COUNT 0.24 K/ L 0.00-0.50 (BEAKER) (test code = 416) BASOPHILS ABSOLUTE COUNT (BEAKER) 0.03 K/ L 0.00-0.20 (test code = 417) IMMATURE GRANULOCYTES-RELATIVE 0 % 0-0 PERCENT (BEAKER) (test code = 2801) COMPREHENSIVE METABOLIC [id number] 22:15:00 Test Item Value Reference Range Interpretation Comments TOTAL PROTEIN 7.4 gm/dL 6.0-8.5 (BEAKER) (test code = 770) ALBUMIN (BEAKER) 4.5 g/dL 3.5-5.0 (test code = 1145) ALKALINE PHOSPHATASE 48 U/L 30-115 (BEAKER) (test code = 346) BILIRUBIN TOTAL 0.6 mg/dL 0.1-1.3 (BEAKER) (test code = 377) SODIUM (BEAKER) (test 139 meq/L 135-148 code = 381) POTASSIUM (BEAKER) 3.9 meq/L 3.5-5.5 (test code = 379) CHLORIDE (BEAKER) 104 meq/L 98-106 (test code = 382) CO2 (BEAKER) (test 28 meq/L 20-31 code = 355) BLOOD UREA NITROGEN 14 mg/dL 10-26 (BEAKER) (test code = 354) CREATININE (BEAKER) 0.77 mg/dL 0.50-1.20 (test code = 358) GLUCOSE RANDOM 114 mg/dL 70-110 H (BEAKER) (test code = 652) CALCIUM (BEAKER) 9.4 mg/dL 8.5-10.5 (test code = 697) AST (SGOT) (BEAKER) 20 U/L 5-40 (test code = 353) ALT (SGPT) (BEAKER) 28 U/L 6-50 (test code = 347) EGFR (BEAKER) (test 90 mL/min/1.73 ESTIMA ROSENDO GFR IS code = 1092) sq m NOT ACCURATE CREATININE CLEARANCE IN PREDICTING GLOMERULAR FILTRATION RATE . ESTIMATED GFR I S NOT APPLICABLE FOR DIALYSIS PATIEN TS. Incident Response Specialist ID - [id number], SERUM, [id number] 22:08:00 Test Item Value Reference Range Interpretation Comments TEST SERUM (BEAKER) (test Negative code = 584) CBC W/PLT COUNT & AUTO [id number] 21:53:00 Test Item Value Reference Range Interpretation Comments WHITE BLOOD CELL COUNT (BEAKER) 8.3 K/ L 4.0-10.0 (test code = 775) RED BLOOD CELL COUNT (BEAKER) 4.09 M/ L 4.00-5.00 (test code = 761) HEMOGLOBIN (BEAKER) (test code = 12.9 GM/DL 12.0-15.5 410) HEMATOCRIT (BEAKER) (test code = 37.5 % 36.0-46.0 411) MEAN CORPUSCULAR VOLUME (BEAKER) 91.7 fL 82.0-99.0 (test code = 753) MEAN CORPUSCULAR HEMOGLOBIN 31.5 pg 27.0-33.0 (BEAKER) (test code = 751) MEAN CORPUSCULAR HEMOGLOBIN CONC 34.4 GM/DL 32.0-36.0 (BEAKER) (test code = 752) RED CELL DISTRIBUTION WIDTH 12.2 % 12.0-15.0 (BEAKER) (test code = 412) PLATELET COUNT (BEAKER) (test 229 K/CU MM 150-430 code = 756) MEAN PLATELET VOLUME (BEAKER) 9.7 fL 6.0-11.5 (test code = 754) NUCLEATED RED BLOOD CELLS 0 /100 WBC 0-0 (BEAKER) (test code = 413) NEUTROPHILS RELATIVE PERCENT 45 % (BEAKER) (test code = 429) LYMPHOCYTES RELATIVE PERCENT 47 % (BEAKER) (test code = 430) MONOCYTES RELATIVE PERCENT 5 % (BEAKER) (test code = 431) EOSINOPHILS RELATIVE PERCENT 2 % (BEAKER) (test code = 432) BASOPHILS RELATIVE PERCENT 1 % (BEAKER) (test code = 437) NEUTROPHILS ABSOLUTE COUNT 3.76 K/ L 1.80-8.00 (BEAKER) (test code = 670) LYMPHOCYTES ABSOLUTE COUNT 3.89 K/ L 1.48-4.50 (BEAKER) (test code = 414) MONOCYTES ABSOLUTE COUNT (BEAKER) 0.41 K/ L 0.00-1.30 (test code = 415) EOSINOPHILS ABSOLUTE COUNT 0.20 K/ L 0.00-0.50 (BEAKER) (test code = 416) BASOPHILS ABSOLUTE COUNT (BEAKER) 0.04 K/ L 0.00-0.20 (test code = 417) IMMATURE GRANULOCYTES-RELATIVE 0 % 0-0 PERCENT (BEAKER) (test code = 2801) CT, [id number] 22:36:00Unlisted Reason for Exam - Click Yes and Enter Reason Below->NoWill this procedure require oral contrast?->No [facility] 1995 Sex: FFINAL REPORT EXAM: CT ABDOMEN AND PELVIS WITH CONTRAST CLINICAL INDICATION: Abdominal pain, acute, nonlocalized TECHNIQUE: CT abdomen and pelvis was performed, following the administration of contrast, as per department protocol. Axial, sagittal, and coronal reconstructions were obtained. IV CONTRAST: 100 cc of Isovue 300 ORAL CONTRAST: Not administered, limiting the sensitivity of this exam for evaluation of bowel, retroperitoneum, and intraabdominal fluid collections. RADIATIONDOSE REDUCTION:This exam was performed according to the departmental dose-optimization program whichincludes automated exposure control, adjustment of the mA and/or kV according to patient size and/oruse of iterative reconstruction technique. COMPARISON: None FINDINGS: LOWER CHEST: No pathologic process in imaged portion of lower chest LIVER: No pathologic process. GALLBLADDER: No pathologic process. BILE DUCTS: No pathologic process. PANCREAS:No pathologic process. SPLEEN: No pathologic process. ADRENALS:No pathologic process. KIDNEYS AND URETERS: No pathologic process. URINARY BLADDER:No pathologic process. GASTROINTESTINAL TRACT:No pathologic process. APPENDIX:No inflammatory changes in region of appendix. LYMPH NODES:No lymphadenopathy. PERITONEUM/MESENTERY:No free air, significant free fluid, mass or fluid collection. VESSELS:No vascular abnormality. ADDITIONAL RETROPERITONEAL FINDINGS:None. REPRODUCTIVE ORGANS:The uterus shows heterogeneous enhancement. There is small amount of fluid inthe endometrial cavity. Unless the patient is menstruating, this would be abnormal. This could also represent pus or blood. Adnexa are not well visualized because of the presence of multiple adjacent loops of bowel. The CT is not optimized for evaluation of the pelvic genitalia. An ultrasound examination should be performed for further assessment. ABDOMINAL AND PELVIC RUTH:No pathologic process. MUSCULOSKELETAL:No pathologic process. ADDITIONAL FINDINGS: None. IMPRESSION: Heterogeneous enhancement of the uterus with fluid in the endometrial canal. Please see above. A pelvic ultrasound would be considered for better evaluation if clinically indicated. Standardized Report: [id number]. Signed: Romario Mejia Verified Date/Time: 12/31/2020 22:36:46 Reading Location: [address] Reading Room /FREE T4 IF [id number] 19:26:00 Test Item Value Reference Range Interpretation Comments THYROID STIMULATING HORMONE 0.670 uIU/mL 0.350-5.500 (BEAKER) (test code = 772) Incident Response Specialist ID - [id number] METABOLIC [id number] 19:07:00 Test Item Value Reference Range Interpretation Comments TOTAL PROTEIN 7.2 gm/dL 6.0-8.5 (BEAKER) (test code = 770) ALBUMIN (BEAKER) 4.4 g/dL 3.5-5.0 (test code = 1145) ALKALINE PHOSPHATASE 48 U/L 30-115 (BEAKER) (test code = 346) BILIRUBIN TOTAL 0.3 mg/dL 0.1-1.3 (BEAKER) (test code = 377) SODIUM (BEAKER) (test 142 meq/L 135-148 code = 381) POTASSIUM (BEAKER) 3.9 meq/L 3.5-5.5 (test code = 379) CHLORIDE (BEAKER) 108 meq/L 98-106 H (test code = 382) CO2 (BEAKER) (test 25 meq/L 20-31 code = 355) BLOOD UREA NITROGEN 10 mg/dL 10-26 (BEAKER) (test code = 354) CREATININE (BEAKER) 0.70 mg/dL 0.50-1.20 (test code = 358) GLUCOSE RANDOM 84 mg/dL 70-110 (BEAKER) (test code = 652) CALCIUM (BEAKER) 9.0 mg/dL 8.5-10.5 (test code = 697) AST (SGOT) (BEAKER) 20 U/L 5-40 (test code = 353) ALT (SGPT) (BEAKER) 22 U/L 6-50 (test code = 347) EGFR (BEAKER) (test 100 ESTIMATE D GFR IS code = 1092) mL/min/1.73 sq NOT ACCURA TE m CREATININE CLEARANCE IN PREDICTING GLOMERULAR FILTRATION RATE . ESTIMATED GFR I S NOT APPLICABLE FOR DIALYSIS PATIEN TS. Incident Response Specialist ID - [id number] 19:07:00 Test Item Value Reference Range Interpretation Comments LIPASE (BEAKER) (test code = 749) 39 U/L 8-78 Incident Response Specialist ID - [id number] DRUG SCREEN, [id number] 19:05:00 Test Item Value Reference Range Interpretation Comments BARBITURATE URINE (BEAKER) (test Negative Negative code = 725) BENZODIAZEPINE SCREEN URINE (BEAKER) Negative Negative (test code = 726) COCAINE (METAB.) SCREEN (BEAKER) Negative Negative (test code = 1164) METHADONE SCREEN (BEAKER) (test code Negative Negative = 1436) OPIATE SCREEN URINE (BEAKER) (test Negative Negative code = 734) CANNABINOID SCREEN URINE (BEAKER) Positive Negative A (test code = 727) AMPH/METHAMPH SCREEN (BEAKER) (test Negative Negative code = 1438) PHENCYCLIDINE SCREEN URINE (BEAKER) Negative Negative (test code = 608) PH UA (BEAKER) (test code = 467) 7.0 5.0-8.0 DRUG CUTOFF CONC.Cocaine 300 ng/mL Cannabinoid 50 ng/mLBenzodiazepine 200 ng/mLBarbiturate 200 ng/mLPhencyclidine 25 ng/mLOpiate 300 ng/mLMethadone 300 ng/mLAmphetamine/ 1000 ng/mL MethamphetamineThis assay provides an unconfirmed qualitative test result for the clinical management of patients in emergency situations. Chain of custody not maintained. Some xeam-rkf-smkdhak medications, as well as adulterants, may cause inaccurate results. Clinical correlation should be applied. A more comprehensive drug screen or confirmation of a detected drug may be performed upon request.Incident Response Specialist ID - [id number] W/ REFLEX URINE [id number] 18:51:00 Test Item Value Reference Range Interpretation Comments COLOR (BEAKER) (test code = 470) Light Yellow CLARITY (BEAKER) (test code = Clear 469) SPECIFIC GRAVITY UA (BEAKER) 1.006 1.001-1.035 (test code = 468) PH UA (BEAKER) (test code = 467) 7.0 5.0-8.0 PROTEIN UA (BEAKER) (test code = Negative Negative 464) GLUCOSE UA (BEAKER) (test code = Negative Negative 365) KETONES UA (BEAKER) (test code = Negative Negative 371) BILIRUBIN UA (BEAKER) (test code Negative Negative = 462) BLOOD UA (BEAKER) (test code = Negative Negative 461) NITRITE UA (BEAKER) (test code = Negative Negative 465) LEUKOCYTE ESTERASE UA (BEAKER) Negative Negative (test code = 466) UROBILINOGEN UA (BEAKER) (test < mg/dL 0.2-1.0 code = 463) RBC UA (BEAKER) (test code = < /HPF 519) WBC UA (BEAKER) (test code = < /HPF 520) BACTERIA (BEAKER) (test code = Rare 517) SQUAMOUS EPITHELIAL (BEAKER) 3 /HPF (test code = 516) SOURCE(BEAKER) (test code = 2795) Incident Response Specialist ID - [auto]Incident Response Specialist ID - techPREGNANCY SCREEN, [id number] 18:45:00 Test Item Value Reference Range Interpretation Comments TEST URINE (BEAKER) (test Negative code = 583) CBC W/PLT COUNT & AUTO [id number] 18:38:00 Test Item Value Reference Range Interpretation Comments WHITE BLOOD CELL COUNT (BEAKER) 7.2 K/ L 4.0-10.0 (test code = 775) RED BLOOD CELL COUNT (BEAKER) 4.05 M/ L 4.00-5.00 (test code = 761) HEMOGLOBIN (BEAKER) (test code = 12.6 GM/DL 12.0-15.5 410) HEMATOCRIT (BEAKER) (test code = 38.2 % 36.0-46.0 411) MEAN CORPUSCULAR VOLUME (BEAKER) 94.3 fL 82.0-99.0 (test code = 753) MEAN CORPUSCULAR HEMOGLOBIN 31.1 pg 27.0-33.0 (BEAKER) (test code = 751) MEAN CORPUSCULAR HEMOGLOBIN CONC 33.0 GM/DL 32.0-36.0 (BEAKER) (test code = 752) RED CELL DISTRIBUTION WIDTH 11.8 % 12.0-15.0 L (BEAKER) (test code = 412) PLATELET COUNT (BEAKER) (test 203 K/CU MM 150-430 code = 756) MEAN PLATELET VOLUME (BEAKER) 10.0 fL 6.0-11.5 (test code = 754) NUCLEATED RED BLOOD CELLS 0 /100 WBC 0-0 (BEAKER) (test code = 413) NEUTROPHILS RELATIVE PERCENT 55 % (BEAKER) (test code = 429) LYMPHOCYTES RELATIVE PERCENT 39 % (BEAKER) (test code = 430) MONOCYTES RELATIVE PERCENT 4 % (BEAKER) (test code = 431) EOSINOPHILS RELATIVE PERCENT 1 % (BEAKER) (test code = 432) BASOPHILS RELATIVE PERCENT 1 % (BEAKER) (test code = 437) NEUTROPHILS ABSOLUTE COUNT 3.91 K/ L 1.80-8.00 (BEAKER) (test code = 670) LYMPHOCYTES ABSOLUTE COUNT 2.82 K/ L 1.48-4.50 (BEAKER) (test code = 414) MONOCYTES ABSOLUTE COUNT (BEAKER) 0.29 K/ L 0.00-1.30 (test code = 415) EOSINOPHILS ABSOLUTE COUNT 0.10 K/ L 0.00-0.50 (BEAKER) (test code = 416) BASOPHILS ABSOLUTE COUNT (BEAKER) 0.04 K/ L 0.00-0.20 (test code = 417) IMMATURE GRANULOCYTES-RELATIVE 0 % 0-0 PERCENT (BEAKER) (test code = 2801) UA RFLX MICR CULT IF [id number] 00:31:00 Test Item Value Reference Range Interpretation Comments UA COLOR (test code = YELLOW DESCRIPT YELLOW COLU) UA APPEARANCE (test TURBID CLEAR A code = APPU) (1+)HAZY-CLDY DESCRIPT UA GLUCOSE DIPSTICK NORMAL (0) See_Comment [Automa rosendo (test code = DGLUU) mg/dL message] The system which generated this result transmit rosendo reference range : 0 (NORMAL). The reference range was not used to interpret this result as normal/abnormal . UA BILIRUBIN DIPSTICK NEGATIVE (0.0) See_Comment [Au tomated (test code = BILU) mg/dL message] The system which generated this result transmit rosendo reference range : (NEG) 0. The reference range was not used to interpret this result as normal/abnormal . UA KETONE DIPSTICK NEGATIVE (0) See_Comment [Automat ed (test code = KETU) mg/dL message] The system which generated this result transmit rosendo reference range : (NEG) 0. The reference range was not used to interpret this result as normal/abnormal . UA SPECIFIC GRAVITY 1.028 SG 1.001-1.035 (test code = SGU) UA BLOOD DIPSTICK NEGATIVE (0.00) See_Comment [Autom ated (test code = MARCELINO) mg/dL message] T he system which generated this result transmit rosendo reference range : 0 (NEG). The reference range was not used to interpret this result as normal/abnormal . UA PH DIPSTICK (test 6.5 pH UNITS 4.6-8.0 code = JESUSITA) UA PROTEIN DIPSTICK 70 (1+) mg/dL See_Comment A [Autom ated (test code = PROU) message] The system which generated this result transmit rosendo reference range : <30 (1+). The reference range was not used to interpret this result as normal/abnormal . UA UROBILINIOGEN NORMAL (0) See_Comment [Automated DIPSTICK (test code = mg/Dl messag e] The URO) system which generated this result transmit rosendo reference range : <2.0 (1+). The reference range was not used to interpret this result as normal/abnormal . UA NITRITE DIPSTICK NEGATIVE (0) NEG (test code = RAJAT) SCREEN UA LEUKOCYTE ESTERASE 25 Leuk/mcL See_Comment A [Auto mated DIPSTICK (test code = messag e] The LEUU) system which generated this result transmit rosendo reference range : (NEG) 0. The reference range was not used to interpret this result as normal/abnormal . UA COMMENT (test code CLEAN CATCH SpecComment = COMU) SPEC NoteSPEC UA WBC (test code = 0-3 #WBC/HPF 0-3 WBCU) UA RBC (test code = 0-3 #RBC/HPF 0-3 RBCU) UA BACTERIA (test MODERATE >5 NONE-FEW A code = BACU) /HPF UA SQUAMOUS CELLS FEW >2 /UL NONE-SQepi (test code = SQU) UA MUCUS (test code = MANY /LPF NONE A MUCU) UA CULTURE NEEDED? Crit NOTmet Cult byWBC (test code = UACULT) CULT-N/A Criteria Specimen comments: ccIndication for culture: RiskForSepsis-no oth srcCoronavirus 2019 nCoV [id number] 23:23:00 Test Item Value Reference Range Interpretation Comments Coronavirus 2019 nCoV Bedside (test Negative Neg code = [id number]) Specimen comments: nasalBASIC METABOLIC [id number] 23:04:00 Test Item Value Reference Range Interpretation Comments SODIUM (test code = 141.0 mmol/L 133-144 N NA) POTASSIUM (test 3.9 mmol/L 3.5-5.1 N code = K) CHLORIDE (test code 108 mmol/L 95-105 H = CL) CARBON DIOXIDE 27 mmol/L 21-32 N (test code = CO2) ANION GAP (test 6.0 GAP calc 4.0-15.0 N code = GAP) GLUCOSE (test code 90 MG/DL 70-110 N = GLU) BLOOD UREA NITROGEN 14 MG/DL 7-18 N (test code = BUN) CREATININE (test 0.75 MG/DL 0.55-1.30 N Results may be code = CREAT) depressed if p atient is takingN-Acetylc ystei ne (NAC) and Metamizole (Dipyrone). CALCIUM (test code 8.9 MG/DL 8.5-10.1 N = CA) INDEX HEMOLYSIS 2 TRACE 10-25 See_Comment [Automated message] (test code = MG Index/DL The system [employer] HEMINDEX) generated this result transmit rosendo reference range : 1 NORMAL. The reference range was not used to interpret this result as normal/abnormal . INDEX ICTERIC (test 1 NORMAL <2 MG See_Comment [Auto mated message] code = ICTINDEX) Index/DL The system which generated this result transmit rosendo reference range : 1 NORMAL. The reference range was not used to interpret this result as normal/abnormal . INDEX LIPEMIA (test 1 NORMAL <50 MG See_Comment [Aut omated message] code = LIPINDEX) Index/DL The system which generated this result transmit rosendo reference range : 1 NORMAL. The reference range was not used to interpret this result as normal/abnormal . Specimen comments: [facility] [id number] 23:04:00 Test Item Value Reference Range Interpretation Comments TOTAL PROTEIN (test code = PROT) 7.5 G/DL 6.4-8.2 N ALBUMIN (test code = ALB) 3.9 G/DL 3.4-5.0 N BILIRUBIN TOTAL (test code = 0.22 MG/DL 0.00-1.00 N BILT) BILIRUBIN DIRECT (test code = < 0.10 MG/DL 0.00-0.30 N BILD) BILIRUBIN INDIRECT (test code = 0.22 MG/DL 0.2-1.3 N BILIND) SGOT/AST (test code = AST) 17 Unit/L 15-37 N SGPT/ALT (test code = ALT) 28 Unit/L 12-78 N ALKALINE PHOSPHATASE TOTAL (test 47 Unit/L 45-117 N code = ALKP) Specimen comments: [id number] 23:04:00 Test Item Value Reference Range Interpretation Comments LIPASE (test code = LIP) 120 Unit/L 114-286 N Specimen comments: [id number] 23:04:00 Test Item Value Reference Range Interpretation Comments TROPONIN-I < 0.015 NG/ML 0.000-0.045 N INTERPRET WITH CAUTION, THIS (test code = VALUE EXCEEDS T HE LOWER TROPI) LIMITOF LINEARI TY VERIFICATION ES TABLISHED BY THE LABORATORY. An elevated troponin value alone is not sufficient todi agnose a myocardial infa rction. Rather, the patient'sclinic al presentation (h istory, physical exam) and ECGshould be used in conj unction with troponin in the diagnostic evaluation of s uspected myocardial infa rction. Aserial samplin g protocol is recommended to facilitate theidentificati on of temporal change s in troponin levelscharacter istic of [place]. Specimen comments: ccLACTIC [id number] 23:02:00 Test Item Value Reference Range Interpretation Comments LACTIC ACID (test code = LACT) 1.0 mmol/L 0.4-2.0 N Specimen comments: ccBASIC METABOLIC [id number] 22:59:00 Test Item Value Reference Range Interpretation Comments SODIUM (test code = 141.0 mmol/L 133-144 N NA) POTASSIUM (test 3.9 mmol/L 3.5-5.1 N code = K) CHLORIDE (test code 108 mmol/L 95-105 H = CL) CARBON DIOXIDE 27 mmol/L 21-32 N (test code = CO2) ANION GAP (test 6.0 GAP calc 4.0-15.0 N code = GAP) GLUCOSE (test code 90 MG/DL 70-110 N = GLU) BLOOD UREA NITROGEN 14 MG/DL 7-18 N (test code = BUN) CREATININE (test 0.75 MG/DL 0.55-1.30 N Results may be code = CREAT) depressed if p atient is takingN-Acetylc ystei ne (NAC) and Metamizole (Dipyrone). CALCIUM (test code 8.9 MG/DL 8.5-10.1 N = CA) INDEX HEMOLYSIS 2 TRACE 10-25 See_Comment [Automated message] (test code = MG Index/DL The system [employer]) generated this result transmit rosendo reference range : 1 NORMAL. The reference range was not used to interpret this result as normal/abnormal . INDEX ICTERIC (test 1 NORMAL <2 MG See_Comment [Auto mated message] code = ICTINDEX) Index/DL The system which generated this result transmit rosendo reference range : 1 NORMAL. The reference range was not used to interpret this result as normal/abnormal . INDEX LIPEMIA (test 1 NORMAL <50 MG See_Comment [Aut omated message] code = LIPINDEX) Index/DL The system which generated this result transmit rosendo reference range : 1 NORMAL. The reference range was not used to interpret this result as normal/abnormal . Specimen comments: [facility] [id number] 22:59:00 Test Item Value Reference Range Interpretation Comments TOTAL PROTEIN (test code = PROT) G/DL 6.4-8.2 ALBUMIN (test code = ALB) 3.9 G/DL 3.4-5.0 N BILIRUBIN TOTAL (test code = MG/DL 0.00-1.00 BILT) BILIRUBIN DIRECT (test code = < 0.10 MG/DL 0.00-0.30 N BILD) BILIRUBIN INDIRECT (test code = MG/DL 0.2-1.3 BILIND) SGOT/AST (test code = AST) 17 Unit/L 15-37 N SGPT/ALT (test code = ALT) Unit/L 12-78 ALKALINE PHOSPHATASE TOTAL (test Unit/L 45-117 code = ALKP) Specimen comments: [id number] 22:59:00 Test Item Value Reference Range Interpretation Comments LIPASE (test code = LIP) 120 Unit/L 114-286 N Specimen comments: [id number] 22:59:00 Test Item Value Reference Range Interpretation Comments TROPONIN-I (test code = TROPI) NG/ML 0.000-0.045 Specimen comments: [facility]UM [id number] 22:51:00 Test Item Value Reference Range Interpretation Comments HCG SERUM QUAL (test code = HCGQL) NEG SCREEN NEG Specimen comments: ccCBC W/AUTO [id number] 22:48:00 Test Item Value Reference Range Interpretation Comments WHITE BLOOD CELL (test code = 10.3 K/mm3 4.1-12.1 N WBC) RED BLOOD CELL (test code = RBC) 4.20 M/mm3 3.8-5.5 N HEMOGLOBIN (test code = HGB) 13.1 G/DL 10.6-15.8 N HEMATOCRIT (test code = HCT) 39.5 % 31.8-47.4 N MEAN CELL VOLUME (test code = 94.0 fL 80.1-101.1 N MCV) MEAN CELL HGB (test code = MCH) 31.2 pg 25.3-35.3 N MEAN CELL HGB CONCETRATION (test 33.2 G/DL 32.7-35.1 N code = MCHC) RED CELL DISTRIBUTION WIDTH 11.9 % 12.2-16.4 L (test code = RDW) RED CELL DISTRIBUTION WIDTH 41.3 fL 36.4-46.3 N (test code = RDW-SD) PLATELET COUNT (test code = PLT) 236 K/mm3 155-337 N MEAN PLATELET VOLUME (test code 10.3 fL 6.8-11.2 N = MPV) GRANULOCYTE % (test code = GR%) 56.7 % 37.8-82.6 N IMMATURE GRANULOCYTE % (test 0.3 % 0.0-2.0 N code = IG%) LYMPHOCYTE % (test code = LY%) 37.4 % 14.1-45.4 N MONOCYTE % (test code = MO%) 4.2 % 2.5-11.7 N EOSINOPHIL % (test code = EO%) 1.1 % 0.0-6.2 N BASOPHIL % (test code = BA%) 0.3 % 0.0-2.1 N NUCLEATED RBC % (test code = 0.0 /100WBC% 0.0-1.0 N NRBC%) GRANULOCYTE # (test code = GR#) 5.82 k/mm3 2.0-13.7 N IMMATURE GRANULOCYTE # (test 0.03 K/mm3 0.00-0.03 N code = IG#) LYMPHOCYTE # (test code = LY#) 3.83 K/mm3 0.6-3.8 H MONOCYTE # (test code = MO#) 0.43 K/mm3 0.11-0.59 N EOSINOPHIL # (test code = EO#) 0.11 K/mm3 0.0-0.4 N BASOPHIL # (test code = BA#) 0.03 K/mm3 0.0-0.1 N NUCLEATED RBC # (test code = 0.00 K/mm3 0.0-0.05 N NRBC#) Specimen comments: cc- XR CHEST 1 [id number] 21:04:00 [facility] : 1995 Sex: F FAX: Joan Marsh [phone] [place]: E St: PRE Patient Name: MARION SPENCER Unit No: [id number] EXAMS: CPT CODE: [id number] XR CHEST 1 V [id number] Chest Radiograph History: CODE SEPSIS Comparison: None at this time Location: H45 A single frontal view of the chest is submitted. The right cardiophrenic region is not well assessed on this exam. The heart is within normal limits in size. Pulmonary vasculature is unremarkable. The visualized lung bearden appear to be free of disease. The bones appear unremarkable. IMPRESSION: There is noradiographic evidence of acute cardiopulmonary disease. at 2103 Reported and signed by: Dannie Coronado MD CC: Joan PRESLEY Dictated Date/Time: 12/29/2020 (2103)Technologist: Daksha Palomo Transcribed Date/Time: 12/29/2020 (2103) By: Marie Orig Print D/T: S: 12/29/2020 (2106) GLADYS Gutiérrez NAME: MARION SPENCER [address] [place] [address] PHYS: Joan More[place], [place] [address] : 1995 AGE: 25 SEX: F LOC: B.ERS PHONE #: [phone] EXAM DATE: 12/29/2020 STATUS: PRE ER FAX #: [phone] RAD NO: DC Dt: PAGE 1 Signed ReportCBC W/PLT COUNT & AUTO [id number] 13:09:00 Test Item Value Reference Range Interpretation Comments WHITE BLOOD CELL COUNT (BEAKER) 7.0 K/ L 4.0-10.0 (test code = 775) RED BLOOD CELL COUNT (BEAKER) 4.36 M/ L 4.00-5.00 (test code = 761) HEMOGLOBIN (BEAKER) (test code = 13.9 GM/DL 12.0-15.0 410) HEMATOCRIT (BEAKER) (test code = 42.3 % 36.0-45.0 411) MEAN CORPUSCULAR VOLUME (BEAKER) 97.2 fL 82.0-99.0 (test code = 753) MEAN CORPUSCULAR HEMOGLOBIN 31.9 pg 27.0-33.0 (BEAKER) (test code = 751) MEAN CORPUSCULAR HEMOGLOBIN CONC 32.8 GM/DL 32.0-36.0 (BEAKER) (test code = 752) RED CELL DISTRIBUTION WIDTH 12.7 % 12.0-15.0 (BEAKER) (test code = 412) PLATELET COUNT (BEAKER) (test 203 K/CU MM 150-430 code = 756) MEAN PLATELET VOLUME (BEAKER) 8.8 fL 6.5-10.5 (test code = 754) NUCLEATED RED BLOOD CELLS 0 /100 WBC 0-0 (BEAKER) (test code = 413) NEUTROPHILS RELATIVE PERCENT 54 % (BEAKER) (test code = 429) LYMPHOCYTES RELATIVE PERCENT 37 % (BEAKER) (test code = 430) MONOCYTES RELATIVE PERCENT 6 % (BEAKER) (test code = 431) EOSINOPHILS RELATIVE PERCENT 3 % (BEAKER) (test code = 432) BASOPHILS RELATIVE PERCENT 1 % (BEAKER) (test code = 437) NEUTROPHILS ABSOLUTE COUNT 3.70 K/ L 1.80-8.00 (BEAKER) (test code = 670) LYMPHOCYTES ABSOLUTE COUNT 2.60 K/ L 1.48-4.50 (BEAKER) (test code = 414) MONOCYTES ABSOLUTE COUNT (BEAKER) 0.40 K/ L 0.00-1.30 (test code = 415) EOSINOPHILS ABSOLUTE COUNT 0.20 K/ L 0.00-0.50 (BEAKER) (test code = 416) BASOPHILS ABSOLUTE COUNT (BEAKER) 0.00 K/ L 0.00-0.20 (test code = 417)
[2022-10-07 15:11] LABS: Albumin 3.6 g/dL (3.4-5.0); Bilirubin Total 0.3 mg/dL (0.2-1.0); Potassium 3.8 mmol/L (3.5-5.1); Protein, Total 7.3 g/dL (6.4-8.2)
[2022-10-07 15:15] LABS: Absolute Lymphocytes (CBC) 1.9 K/uL (0.7-4.9); Lymphocytes % 26.3 % (15.3-44.8); MCV 94.8 fL (80-100); MPV 7.5 fL (7.6-11.3); RBC Red Blood Cell Count 4.01 M/uL (3.86-4.86)
[2022-10-07] MEDS ORDERED: NA CHLORIDE 0.9% 1,000 ML ONE (15:39)
--- NOTE | 2022-10-07 17:18 | EDPHYS ---
Physician Documentation [facility] Name: Mary Spencer Age: 27 yrs Sex: Female : 1995 Arrival Date: 10/07/2022 Time: 13:17 Bed Treatment Private MD: ED Physician Wilmer Garcia HPI: 10/07 13:43 This 27 yrs old Female presents to ER via Wheelchair with complaints of Leg Numbness. snw 13:43 pt states she has "severe cognitive impairment", takes psych medications. Pt denies snw trauma, medication changes, or other changes that might explain her s/s. Onset: The symptoms/episode began/occurred suddenly. Severity of symptoms: in the emergency department the symptoms are unchanged. The patient has not experienced similar symptoms in the past. The patient has not recently seen a physician. pt states she has no PCP but sees Psych in [place]. Historical: - Allergies: 13:25 No Known Allergies; hb - PSHx: 13:30 tubal ligation; iw ROS: 13:40 Constitutional: Negative for fever, chills, and weight loss, Eyes: Negative for injury, snw pain, redness, and discharge, ENT: Negative for injury, pain, and discharge, Neck: Negative for injury, pain, and swelling, Cardiovascular: Negative for chest pain, palpitations, and edema, Respiratory: Negative for shortness of breath, cough, wheezing, and pleuritic chest pain, Abdomen/GI: Negative for abdominal pain, nausea, vomiting, diarrhea, and constipation, Back: Negative for injury and pain, : Negative for injury, bleeding, discharge, and swelling, MS/Extremity: Negative for injury and deformity, pt states her legs are jelly and she is unable to walk. denies trauma, medication changes Skin: Negative for injury, rash, and discoloration, Neuro: Negative for headache, weakness, numbness, tingling, and seizure, Psych: Negative for depression, anxiety, suicide ideation, homicidal ideation, and hallucinations. Exam: 13:30 Constitutional: This is a well developed, well nourished patient who is awake, alert, snw and in no acute distress. Head/Face: Normocephalic, atraumatic. 13:30 ENT: Nares patent. No nasal discharge, no septal abnormalities noted. Tympanic membranes are normal and external auditory canals are clear. Oropharynx with no redness, swelling, or masses, exudates, or evidence of obstruction, uvula midline. Mucous membranes moist. Neck: Trachea midline, no thyromegaly or masses palpated, and no cervical lymphadenopathy. Supple, full range of motion without nuchal rigidity, or vertebral point tenderness. No Meningismus. Chest/axilla: Normal chest wall appearance and motion. Nontender with no deformity. No lesions are appreciated. 13:30 Respiratory: Lungs have equal breath sounds bilaterally, clear to auscultation and percussion. No rales, rhonchi or wheezes noted. No increased work of breathing, no retractions or nasal flaring. Abdomen/GI: Soft, non-tender, with normal bowel sounds. No distension or tympany. No guarding or rebound. No evidence of tenderness throughout. Back: No spinal tenderness. No costovertebral tenderness. Full range of motion. Skin: Warm, dry with normal turgor. Normal color with no rashes, no lesions, and no evidence of cellulitis. MS/ Extremity: Pulses equal, no cyanosis. Neurovascular intact. Full, normal range of motion. Neuro: Awake and alert, GCS 15, oriented to person, place, time, and situation. Cranial nerves II-XII grossly intact. Motor strength 5/5 in all extremities. Sensory grossly intact. Cerebellar exam normal. Normal gait. 13:30 Eyes: Pupils: dilated, bilaterally, Conjunctiva: 13:30 Cardiovascular: Rate: tachycardic, Rhythm: regular, Pulses: no pulse deficits are appreciated. 13:30 Psych: Behavior/mood is pleasant, cooperative, anxious, Patient has no thoughts/intents to harm self or others. Judgement / Insight is normal. Vital Signs: 13:23 BP 114 / 97; Pulse 107; Resp 16; Temp 97.6(TE); Pulse Ox 99% ; Weight 45.81 kg; Height hb 5 ft. (152.40 cm); Pain 0/10; 19:20 BP 118 / 82; Pulse 98; Resp 18; Pulse Ox 100% on R/A; Pain 10/10; mb9 13:23 Body Mass Index 19.73 (45.81 kg, 152.40 cm) hb MDM: 13:29 Patient medically screened. snw 15:22 Data reviewed: vital signs, nurses notes. Data interpreted: Pulse oximetry: on room air snw is 99 %. Interpretation: normal. Counseling: I had a detailed discussion with the patient and/or guardian regarding: the historical points, exam findings, and any diagnostic results supporting the discharge/admit diagnosis, the presence of at least one elevated blood pressure reading (>120/80) during this emergency department visit, lab results, the need for outpatient follow up, to return to the emergency department if symptoms worsen or persist or if there are any questions or concerns that arise at home. Special discussion: Based on the history and exam findings, there is no indication for further emergent testing or inpatient evaluation. I discussed with the patient/guardian the need to see the neurologist for further evaluation of the symptoms. I discussed with the patient/guardian the need to see the primary care provider for further evaluation of the symptoms. 10/07 13:30 Order name: CBC with Diff; Complete Time: 15:21 snw 10/07 13:30 Order name: CMP; Complete Time: 15:12 snw 10/07 18:54 Order name: Lumbar Spine (3 Views) XRAY; Complete Time: 20:14 snw Administered Medications: 15:40 Drug: NS 0.9% 1000 ml Route: IV; Rate: 1 bolus; Site: right antecubital; hb 18:32 Not Given (Patient Refused): Ativan (LORazepam) 1 mg PO once; sublingually iw Disposition: 10/08 07:02 Co-signature as Attending Physician, Wilmer Garcia MD. rn Disposition Summary: 10/07/22 17:18 Discharge Ordered Location: Home snw Condition: Stable snw Diagnosis - Muscle weakness (generalized) snw Followup: snw - With: Emergency Department - When: As needed - Reason: Worsening of condition Followup: snw - With: Private Physician - When: 2 - 3 days - Reason: Recheck today's complaints, Continuance of care, Re-evaluation by your physician Discharge Instructions: - Discharge Summary Sheet snw - Weakness snw - Myopathy snw Forms: - Medication Reconciliation Form snw - Thank You Letter snw - Antibiotic Education snw - Prescription Opioid Use snw Signatures: Dispatcher [employer] EDLaverne Grewal FNP-C NUCLEAR PHARMACIST-Csnw Carolee Lopez RN RN iw Garcia, Wilmer, MD MD rn Mckee, Belkis, RN RN hb
--- NOTE | 2022-10-07 17:18 | ER ---
Nurse's Notes [facility] Name: Mary Spencer Age: 27 yrs Sex: Female : 1995 Arrival Date: 10/07/2022 Time: 13:17 Bed Treatment Private MD: Diagnosis: Muscle weakness (generalized) Presentation: 10/07 13:23 Chief complaint: Patient states: "I can't move or feel my legs, it started yesterday." hb Pt fidgeting in wheelchair, crossing and uncrossing legs in chair. Coronavirus screen: At this time, the client does not indicate any symptoms associated with coronavirus-19. Ebola Screen: No symptoms or risks identified at this time. Initial Sepsis Screen: Does the patient meet any 2 criteria? No. Patient's initial sepsis screen is negative. Does the patient have a suspected source of infection? No. Patient's initial sepsis screen is negative. Risk Assessment: Do you want to hurt yourself or someone else? Patient reports no desire to harm self or others. Onset of symptoms was October 06, 2022. 13:23 Method Of Arrival: Wheelchair hb 13:23 Acuity: ROSALIE 3 hb Triage Assessment: 19:12 General: Appears. mb9 Historical: - Allergies: 13:25 No Known Allergies; hb - PSHx: 13:30 tubal ligation; iw Screenin:33 Abuse screen: Denies threats or abuse. Denies injuries from another. Nutritional iw screening: No deficits noted. Tuberculosis screening: No symptoms or risk factors identified. Assessment: 18:32 Reassessment: pt refuses ativan states she is on clonazepam and can;t mix her meds. iw 19:00 Reassessment: Report received from BRUNILDA Zarco. hernando 19:03 Reassessment: pt refuses to try to walk, boyfriend at bedside states the symptoms iw started after they had sex last night, she complained that her legs and feet went numb and they thought it kash get better today but it hasn't , Laverne, [employer] notified, xray ordered. 19:20 General: Appears in no apparent distress. comfortable, Behavior is calm, cooperative, mb9 appropriate for age. Pain: Complains of pain in right leg and left leg Pain does not radiate. Pain currently is 10 out of 10 on a pain scale. Quality of pain is described as aching, Alleviated by nothing. Aggravated by increased activity, repositioning. Neuro: Level of Consciousness is awake, alert, obeys commands, Oriented to person, place, time, situation, Appropriate for age. Cardiovascular: Rhythm is regular. Respiratory: Airway is patent Respiratory effort is even, unlabored, Respiratory pattern is regular, symmetrical. Derm: Skin is pink, warm \\T\\ dry. Musculoskeletal: Range of motion: limited in right and left lower extremities. 19:30 Reassessment: pt taken to XRAY. mb9 20:10 Musculoskeletal: pt able to flex and extend bilateral lower extremities. Pt states she mb9 can only put minimal weight when standing. AAOx4. Airway is patent, respirations are even and unlabored. Vital Signs: 13:23 BP 114 / 97; Pulse 107; Resp 16; Temp 97.6(TE); Pulse Ox 99% ; Weight 45.81 kg; Height hb 5 ft. (152.40 cm); Pain 0/10; 19:20 BP 118 / 82; Pulse 98; Resp 18; Pulse Ox 100% on R/A; Pain 10/10; mb9 13:23 Body Mass Index 19.73 (45.81 kg, 152.40 cm) hb ED Course: 13:17 Patient arrived in ED. mr 13:18 [facility] Sale[facility]C [facility] snw 13:18 Wilmer Garcia MD is Attending Physician. snw 13:25 Triage completed. hb 13:26 Arm band placed on. hb 14:53 CMP Sent. rs5 14:53 CBC with Diff Sent. rs5 14:54 Inserted saline lock: 22 gauge in right antecubital area, using aseptic technique. rs5 Blood collected. 15:42 Carolee Lopez, RN is Primary Nurse. iw 19:43 No provider procedures requiring assistance completed. mb9 19:46 Lumbar Spine (3 Views) XRAY In Process Unspecified. EDMS 20:23 IV discontinued, intact, bleeding controlled, No redness/swelling at site. Pressure mb9 dressing applied. Administered Medications: 15:40 Drug: NS 0.9% 1000 ml Route: IV; Rate: 1 bolus; Site: right antecubital; hb 18:32 Not Given (Patient Refused): Ativan (LORazepam) 1 mg PO once; sublingually iw Outcome: 17:18 Discharge ordered by . clive 20:22 Discharged to home via wheelchair. mb9 20:22 Condition: stable 20:22 Discharge instructions given to patient, Instructed on discharge instructions, follow up and referral plans. Demonstrated understanding of instructions, follow-up care. 20:23 Patient left the ED. mb9 Signatures: Dispatcher [employer] EDMS Laverne Saleh, TRACK AND FIELD COACH-C TRACK AND FIELD COACH-Csnw Soledad Whitman Irene, RN RN iw Baxter, Heather, RN RN hb Breneman, Mary Beth, RN RN mb9 Nikolas Posada rs5
[2022-10-07] MEDS ORDERED: LORAZEPAM 1 MG TABLET ONE (18:32)
--- NOTE | 2022-10-07 20:07 | RAD REPORT ---
EXAM DESCRIPTION: RAD - Lumbar Spine 3 Views - 10/07/2022 7:45 pm CLINICAL HISTORY: Numbness and weakness FINDINGS: No fracture or dislocation is seen. No significant bone or joint abnormality visualized
[2022-10-07 21:09] VITALS: TEMP 97.6
[2022-10-07 21:10] VITALS: BP 118/82; O2SAT 100
== END 2022-10-07 20:23 | disposition home or self-care (01) ==
LOC: ER 13:13
DX: M62.81 Muscle weakness (generalized) (principal)
CPT/HCPCS: 85025; 36415; 80053; 72100; 99284; J7030

== ENCOUNTER 2022-10-18 19:57 | Emergency (ER) | payer OTHER ==
--- OUTSIDE RECORDS SUMMARY | 2022-10-18 20:02 | XMS REPORT | Continuity of Care Document ---
:1995 Author Organization [facility] t Address [address] [place] [address] Care Team Providers Name Role Phone SHARPLESS Primary Care Physician Unavailable LESTER GAN Attending Clinician Unavailable JT AMATO Attending Clinician Unavailable LAB90 Attending Clinician Unavailable STACY HOLMAN Attending Clinician Unavailable COMPA BRAVO Attending Clinician Unavailable FROYLAN PAYTON Attending Clinician Unavailable COMPA ESCOBEDO Attending Clinician Unavailable Nancy RODRIGUEZ, Librado Magana Attending Clinician Corbin Bell MD Attending Clinician [phone] [id number] Attending Clinician Unavailable ARGELIA ELLISON Attending Clinician Unavailable MARY ELISE Attending Clinician Unavailable GRACE MONTEJO Attending Clinician Unavailable ADINA CHACON Attending Clinician Unavailable GUDELIA MALONE Attending Clinician Unavailable ZAIRE LI Admitting Clinician Unavailable SULMA MONTIEL Admitting Clinician Unavailable Payers Payer Name Policy Type Policy Number Effective Date Expiration Date Kwadwo lovelace CIGPO PPO [id number] 2022 00:00:00 CIGNA-EDUCATORS 2 [id number] 2021 00:00:00 [employer] [facility] CIGNA [id number] 2020 00:00:00 PPO Problems Condition Condition Condition Status Onset Resolution Last Treating Co mments Source Name Details Category Date Date Treatment Clinician Date Gastropare Gastropare Disease Active [facility]: [place] Unintentio Unintentio Disease Active [facility] nal weight nal weight 4-14 Debra kes loss loss 00:00: [place] Dehydratio Dehydratio Disease Active [facility] n n 4-14 [facility] 00:00: [place] Epigastric Epigastric Disease Active [facility] pain pain 4-14 [facility] 00:[facility]: Center Failure to Failure to Disease Active [facility] thrive in thrive in 4-13 [facility] adult adult 00:00: Center Unable to Unable to Disease Active Overview: [facility]-13 [facility] 00:00: g of this 00 note Center might be different from the original. Added automatic ally from request for surgery [id number] Sterilizat Sterilizat Disease Active [facility] ion ion 3-01 [facility] 00:00: Center Abdominal Abdominal Disease Active [facility] pain pain 9-18 [facility] affecting affecting 00:00: Medi [place] , , 00 Ce nter antepartum antepartum Allergies, Adverse Reactions, Alerts Allergy Allergy Status Severity Reaction(s) Onset Inactive Treating Comm ents Source Name Type Date Date Clinician No Known DA Active [facility]23 [facility] [facility] 00:[facility]: [facility] No Known DA Active [facility] Allergie 3-23 [place] [facility] 00:00: [facility] VILAZODO Allergy Active [facility] NE -18 00:00: 00 Vilazodo Propensi Active seizures [facility] to 06-26 [facility] adverse 00:00: Medical reaction 00 Center s Family History Family Member Diagnosis Comments Start Date Stop Date Source Natural mother Depression [facility] Natural mother Diabetes [facility] Natural mother Mental illness [facility] Social History Social Habit Start Date Stop Date Quantity Comments Source History of tobacco Smokes tobacco Me thodist use daily Hospital History SDOH [facility] Alcohol [facility] History SDOH [facility] Alcohol Std Drinks [facility] History SDOH [facility] Alcohol Binge Medical Xiao [facility] Tobacco Comment 2021-01-19 2021-01-19 vape [facility] kes 00:00:00 00:00:00 [facility] Alcohol intake 2018-01-07 2018-01-07 Current Worship 00:00:00 00:00:00 non-drinker of Hospital alcohol (finding) Alcohol Comment 2016-11-30 2016-11-30 occ. [facility] St Debra kes 00:00:00 00:00:00 [facility] Tobacco use and 2016-06-26 2016-06-[address] [facility] exposure 00:00:00 00:00:00 [facility] Sex Ass[birth year] At [birth year] W[facility] 00:00:00 00:00:00 Hospital Smoking Status Start Date Stop Date Source Smokes tobacco daily 2018-01-07 00:00:00 [facility] Former smoker 2016-06-26 00:00:00 2016-06-26 00:00:00 [facility] Medications Ordered Filled Start Stop Current Ordering [...] every 6 (six) hours for 30 days. naproxen 2021- No 500mg Q.5D Take 1 Metho di (NAPROSYN) 3-15 04-[address] 500 MG 00:00: 04:59 (500 mg Hospita tablet 00 :00 total) by l mouth 2 (two) times a day with meals for 30 days. ondansetron 2021-2021- No 4mg Q6H Take 1 Met hodi (ZOFRAN) 4 3-15 04-15 tablet (4 st MG tablet 00:00: 04:59 mg total) Ho spita 00 :00 by mouth l every 6 (six) hours for 30 days. traMADoL 2021-2021- [place] [id number] 50mg Q6H Take 1 Metho di (ULTRAM) 50 3-15 03-21 tablet (50 s t mg tablet 00:00: 04:59 mg total) Ho spita 00 :00 by mouth l every 6 (six) hours as needed for moderate pain for up to 5 days .acute pain. traMADoL 2021-2021- [place] [id number] 50mg Q6H Take 1 Metho di (ULTRAM) 50 3-15 03-21 tablet (50 s t mg tablet 00:00: 04:59 mg total) Ho spita 00 :00 by mouth l every 6 (six) hours as needed for moderate pain for up to 5 days .acute pain. OLANZapine Yes 7.5mg QD Take 7.[address] (ZYPREXA) 9-02 mg by [facility] 7.5 MG 18:01: mouth Medical tablet 45 nightly. [place] OLANZapine 0 Yes 7.5mg QD Take 7.[address] (ZYPREXA) 9-02 mg by [facility] 7.5 MG 18:01: mouth Medical tablet 45 nightly. [place] ondansetron 0 Yes 4mg Q8H Take 1 Meth wade (ZOFRAN) 4 7-08 tablet (4 st MG tablet 00:00: mg total) Hos arelis 00 by mouth l every 8 (eight) hours as needed for nausea or vomiting. ondansetron 0 Yes 4mg Take [address] (ZOFRAN) 4 7-08 by mouth. Luke s MG tablet 00:00: Medical 00 [place] ondansetron 2020-0 Yes 4mg Take [address] (ZOFRAN) 4 7-08 by mouth. Luke s MG tablet 00:00: Medical 00 Center ondansetron 0 Yes 4mg Q8H Take 1 Meth wade (ZOFRAN) 4 7-08 tablet (4 st MG tablet 00:00: mg total) Hos arelis 00 by mouth l every 8 (eight) hours as needed for nausea or vomiting. scopolamine 2021- No 1.5mg Place [address] (TRANSDERM- 4-17 04-17 patch (1.5 L ukes SCOP) 1 mg 00:00: 23:59 mg total) M edical over 3 days 00 :00 onto the Cent er patch skin every third day. scopolamine 2020-0 2021- No 1.5mg Place [address] (TRANSDERM- 4-17 04-17 patch (1.5 L ukes SCOP) 1 mg 00:00: 23:59 mg total) M edical over 3 days 00 :00 onto the Cent er patch skin every third day. mirtazapine 0 Yes 15mg QD Take [address] (REMERON 3-29 by mouth [facility] YESENIA-TAB) 15 00:00: nightly. Me dical MG 00 Center disintegrat ing tablet mirtazapine 2020-0 Yes 15mg QD Take [address] (REMERON 3-29 by mouth [facility] YESENIA-TAB) 15 00:00: nightly. Me dical MG 00 Center disintegrat ing tablet clonazePAM 2020-0 Yes 2mg Q.5D Take [address] (KlonoPIN) 3-18 by mouth 2 Rio es 2 MG tablet 00:00: (two) Medic al 00 times Center daily. clonazePAM 2020-0 Yes 2mg Q.5D Take [address] (KlonoPIN) 3-18 by mouth 2 Rio es 2 MG tablet 00:00: (two) Medic al 00 times Center daily. busPIRone 2020-0 Yes 10mg Q.5D Take [address] (BUSPAR) 10 3-03 by mouth 2 Debra kes MG tablet 00:00: (two) Medical 00 times Center daily . desvenlafax 2020-0 Yes 50mg QD Take [address] ine 3-03 by mouth [facility] succinate 00:00: daily. Medica l (PRISTIQ) 00 Center 50 MG 24 hr tablet busPIRone 2020-0 Yes 10mg Q.5D Take [address] (BUSPAR) 10 3-03 by mouth 2 Debra kes MG tablet 00:00: (two) Medical 00 times Center daily . desvenlafax 2020-0 Yes 50mg QD Take [address] ine 3-03 by mouth [facility] succinate 00:00: daily. Medica l (PRISTIQ) 00 Center 50 MG 24 hr tablet clonAZEPAM 2017-0 Yes 1mg Q.2D Take 1 mg Me thodi (KlonoPIN) 4-[address] 1 MG tablet 11:14: (five) Hosp audi 17 times a l day. PRAZOSIN 2018-0 Yes 2mg QD Take 2 mg Meth wade HCL 4-[address] (PRAZOSIN 11:14: nightly. Hosp audi ORAL) 17 l QUEtiapine 2018-0 Yes 200mg QD Take 200 Me thodi fumarate ER 4-[address] 50 mg 11:14: mouth Hospita tablet 17 daily. l extended release 24 hr PRAZOSIN 2018-0 Yes 2mg QD Take 2 mg Meth [...] MRNA (PF) 12yr+ 00:00:00 Medical C enter (Pfizer/[employer])(IM M601) Covid-19 Vaccine 2021-01-[address] [facility] MRNA (PF) 12yr+ 00:00:00 Medical C enter (Pfizer/BioNTech)(IM M601) MMR 2016-06-[address] [facility] 00:00:00 [facility] 2016-06-[address] [facility] 00:00:00 [facility] Vital Signs Vital Name Observation Time Observation [...] 154.9 cm WEIGHT 2021-01-21 07:30:00 39.463 kg HEIGHT 2021-01-20 06:00:00 154.9 cm WEIGHT 2021-01-20 06:00:00 39.78 kg HEIGHT 2021-01-19 19:22:00 154.9 cm WEIGHT 2021-01-19 19:22:00 35.2 kg HEIGHT 2021-01-21 07:30:00 154.9 cm WEIGHT 2021-01-21 07:30:00 39.463 kg HEIGHT 2021-01-20 06:00:00 154.9 cm WEIGHT 2021-01-20 06:00:00 39.78 kg HEIGHT 2021-01-19 19:22:00 154.9 cm WEIGHT 2021-01-19 19:22:00 35.2 kg HEIGHT 2020-12-31 16:03:00 154.9 cm WEIGHT 2020-12-31 16:03:00 38.556 kg HEIGHT 2020-12-31 16:03:00 154.9 cm WEIGHT 2020-12-31 16:03:00 38.556 kg Systolic blood 2021-12-21 11:07:00 102 mm[Hg] [facility] pressure Diastolic blood 2021-12-21 11:07:00 69 mm[Hg] [facility] pressure Heart rate 2021-12-21 11:07:00 68 /min [facility] Respiratory rate 2021-12-21 11:07:00 16 /min [facility] Oxygen saturation in 2021-12-21 11:07:00 99 /min [facility] Arterial blood by Pulse oximetry Body temperature 2021-12-21 10:04:42 36.44 Leanna [facility] Body height 2021-12-21 10:02:00 154.9 cm [facility] Body weight 2021-12-21 10:02:00 52.164 kg [facility] BMI 2021-12-21 10:02:00 21.73 kg/m2 [facility] Procedures Procedure Date / Time Performing Clinician Source Performed US PELVIC TRANSABDOMINAL 2021-12-21 11:48:27 [facility] US PELVIC TRANSVAGINAL 2021-12-21 11:47:46 [facility] CT ABDOMEN PELVIS W 2021-12-21 10:50:49 [facility] CONTRAST URINE CULTURE 2021-12-21 10:19:00 [facility] HC COMPLETE BLD COUNT 2021-12-21 10:18:00 [facility] W/AUTO DIFF COMPREHENSIVE METABOLIC 2021-12-21 10:18:00 [facility] PANEL ESTIMATED GFR 2021-12-21 10:18:00 [facility] URINALYSIS 2021-12-21 10:13:00 [facility] HCG QUALITATIVE, URINE 2021-12-21 10:13:00 [facility] SCREEN Plan of Care Planned Activity Planned Date Details Comments Source Future Scheduled 2026-05-09 DTAP/TDAP/TD VACCINES [facility] Test 00:00:00 (5 - Td or Tdap) [code Medic al Center = DTAP/TDAP/TD VACCINES (5 - Td or Tdap)] Future Scheduled 2026-05-09 DTAP/TDAP/TD VACCINES [facility] Test 00:00:00 (5 - Td or Tdap) [code Medic al Center = DTAP/TDAP/TD VACCINES (5 - Td or Tdap)] Future Scheduled 2022-10-[address] [facility] Test 00:00:00 (12+) [code = Medical Center DEPRESSION SCREENING (12+)] Future Scheduled 2022-10-07 Pneumococcal Vaccine: [facility] Test 13:16:25 Pediatrics (0 to 5 Years) and At-Risk Patients (6 to 64 Years) (1 - PCV) [code = Pneumococcal Vaccine: Pediatrics (0 to 5 Years) and At-Risk Patients (6 to 64 Years) (1 - PCV)] Future Scheduled 2022-10-07 Hepatitis C screening [facility] Test 13:16:25 (procedure) [code = 399733035] Future Scheduled 2022-10-07 [facility] 13:16:25 malignant neoplasm of cervix (procedure) [code = 025193430] Future Scheduled 2022-10-07 COVID-19 VACCINE (2 - [facility] Test 13:16:25 Pfizer series) [code = COVID-19 VACCINE (2 - Pfizer series)] Future Scheduled 2022-10-07 INFLUENZA VACCINE Method [facility] Hospital Test 13:16:25 [code = INFLUENZA VACCINE] Future Scheduled 2022-10-07 Pneumococcal Vaccine: [facility] Test 13:16:25 Pediatrics (0 to 5 Years) and At-Risk Patients (6 to 64 Years) (1 - PCV) [code = Pneumococcal Vaccine: Pediatrics (0 to 5 Years) and At-Risk Patients (6 to 64 Years) (1 - PCV)] Future Scheduled 2022-10-[address] [facility] Test 13:16:25 (procedure) [code = 439901903] Future Scheduled 2022-10-07 [facility] Test 13:16:25 malignant neoplasm of cervix (procedure) [code = 483710431] Future Scheduled 2022-10-07 COVID-19 VACCINE [facility]2 [facility] Test 13:16:25 Pfizer series) [code = COVID-19 VACCINE (2 - Pfizer series)] Future Scheduled 2022-10-07 INFLUENZA VACCINE Method [facility] Test 13:16:25 [code = INFLUENZA VACCINE] Future Scheduled 2022-06-[address] [facility] Test 00:00:00 Counseling and Medical Cente r Screening (12+) [code = Tobacco Cessation Counseling and Screening (12+)] Future Scheduled 2022-06-[address] [facility] Test 00:00:00 Counseling and Medical Cente r Screening (12+) [code = Tobacco Cessation Counseling and Screening (12+)] Future Scheduled 2022-06-09 INFLUENZA VACCINE (#1) [facility] Test 00:00:00 [code = INFLUENZA Medical Ce nter VACCINE (#1)] Future Scheduled 2022-06-09 INFLUENZA VACCINE (#1) [facility] Test 00:00:00 [code = INFLUENZA Medical Ce nter VACCINE (#1)] Future Scheduled 2021-10-[address] [facility] Test 00:00:00 (12+) [code = Medical Center DEPRESSION SCREENING (12+)] Future Scheduled 2021-02-04 COVID-19 VACCINE (2 - [facility] Test 00:00:00 Pfizer series) [code = Medic al Center COVID-19 VACCINE (2 - Pfizer series)] Future Scheduled 2021-02-04 COVID-19 VACCINE (2 - [facility] Test 00:00:00 Pfizer series) [code = Medic al Center COVID-19 VACCINE (2 - Pfizer series)] Future Scheduled [address] Test 00:00:00 malignant neoplasm of Medica l Center cervix (procedure) [code = 072487745] Future Scheduled [address] [facility] Test 00:00:00 malignant neoplasm of Medica l Center cervix (procedure) [code = 761071623] Future Scheduled 2011 HEPATITIS C SCREENING [facility] Test 00:00:00 [code = HEPATITIS C Medical Center SCREENING] Future Scheduled 2011 HEPATITIS C SCRE[facility]ING [facility] Test 00:00:00 [code = HEPATITIS C Medical Center SCREENING] Encounters Start End Encounter Admission Attending Care Care Encounter Source Date/Time Date/Time Type Type Clinicians Facility Department ID 2022-02-07 Outpatient [facility] [id number] [place] 09:09:12 [id number] [facility] 2020-12-29 Inpatient [facility] [id number] [facility] 22:14:08 69 [facility] 2022-11-14 2022-11-14 Outpatient MADINA AMATO [id number] Madina 09:45:00 09:45:00 JT Seybo ld 2022-10-18 2022-10-18 Outpatient LAB90 MADINA CHILEL [id number] Madina 16:20:00 16:20:00 Seybol d 2022-10-18 2022-10-18 Outpatient MADINA HOLMAN [id number] Madina 15:00:00 15:00:00 STACY Seyb old 2022-05-23 2022-05-23 Outpatient COMPA BRAVO MADINA CHILEL [id number] Madina 15:00:00 15:00:00 Seybol d 2022-02-16 2022-02-16 Emergency E FITO, MHTW MHTW [id number] MHTW 01:14:00 04:55:00 FROYLAN 2022-01-19 2022-01-20 Emergency E ESCOBEDO, MHTW MHTW [id number] MHTW 22:46:00 00:05:00 COMPA 2021-12-21 2021-12-21 Emergency Librado Cruz [id number] Methodi 05:09:00 07:34:[address] Corbin Bell [address] 3.430.2.7 Hospit a .3.209928 l .8 2021-12-21 2021-12-21 Emergency Librado Cruz [id number] Methodi 05:09:00 07:34:00 Corbin Bell [address].1.[address] 3.430.2.7 Hospit a .3.582856 l .8 2021-11-01 2021-11-01 Outpatient EHB51-FBO MADINA CHILEL [id number] Madina 17:10:00 17:10:00 Seybol d 2021-11-01 2021-11-01 Outpatient MADINA ELLISON [id number] Madina 16:00:00 16:00:00 ARGELIA landrum 2021-06-10 2021-06-10 Emergency ER [facility] Emergency [id number] [facility] 17:47:00 17:47:00 2021-04-14 2021-04-15 Emergency NIKIA, [facility] Liane [id number] [place] 00:00:00 00:00:00 GRACE Beltran [facility] 2021-02-04 2021-02-04 Outpatient [facility] [id number] [facility] 00:00:00 00:00:00 2021-01-24 2021-01-24 Emergency ER [facility] Emergency [id number] [facility] 15:29:00 15:29:00 2021-01-19 2021-01-19 Emergency ER [facility] Emergency [id number] [facility] 18:56:00 18:56:00 2021-01-14 2021-01-14 Outpatient [facility] [id number] [facility] 00:00:00 00:00:00 2020-12-31 2020-12-31 Emergency ER [facility] Emergency [id number] [facility] 15:37:00 15:37:00 2017-09-29 2017-09-29 Outpatient IE BARON [id number] Memoria 12:04:00 12:04:00 01 ayden Coleman 2017-09-13 2017-09-13 Outpatient MHIE DOLORESIE [id number] Memoria 12:58:00 12:58:00 00 ayden Coleman Results Test Description Test Time Test Comments Results Result Sour e Comments RAD, CHEST, 1 2021-06-10 Reason for VIEW, NON DEPT 21:10:00 exam:->CHEST PAINReason for CHI exam:->EMESISIs [facility] the patient CENTERName: [place], ?->N/Tatianna THACKER DOB: shauna this be 1995 Sex: performed at the F bedside?->Yes JOHN DAVID REPORT EXAM/TECHNIQUE: Single view frontal radiograph of the chest. INDICATION: Chest pain, emesis. COMPARISON: None. FINDINGS: Devices/Objects: None. Lungs: No focal consolidation. No pleural effusion. No pneumothorax. Heart/Mediastinum: No cardiomegaly. No interstitial thickening. Osseous: No acute osseous process. No suspicious osseous lesion. Upper abdomen: Unremarkable. Impression: No acute cardiopulmonary process. Signed: Jaswinder Townsend MDReport Verified Date/Time: 06/10/2021 21:10:14 -COV2/RT-PCR ([facility]) 2021-06-10 21:08:00 Test Item Value Reference Range Interpretation Comme nts SARS-COV2/RT-PCR (test code = Negative Negative The SARS-CoV-2 target nucleic [id number]) acids are not d etected in this [...] suspected of CO VID-19 by their healthcare prov ider. This test has been authorized by [...] revoked sooner. Fact Sheet for Healthcare Providers: https://www.Trendy Mondays m/Documents/Xpert%20Xpress%20SARS%20CoV-2/Fact%20Sheets/302-3802%58TSLI-FKG-9%20 HEALTHCARE%20PROVIDERS%20FACT%20SHEET.pdf Fact Sheet for Healthcare Patients: https://www.Routezilla/Documents/Xpert%20Xp ress%20SARS%20CoV-2/Fact%20Sheets/302-3801%64LNMF-TRK-5%20PATIENT%20FACT%20SHEET .pdfURINALYSIS W/ REFLEX URINE [id number] 20:49:00 Test Item Value Reference Range Interpretation [...] = 516) SOURCE(BEAKER) (test code = 2795) Employee Service Officer ID - [auto]Employee Service Officer ID - techPREGNANCY SCREEN, [id number] 20:33:00 Test Item Value Reference Range Interpretation Comments TEST URINE (BEAKER) (test Negative code = 583) TROPONIN [id number] 20:08:00 Test Item Value Reference Range Interpretation [...] failure, acidosis, acute neurological disease, and persistent tachyarrhythmia.Employee Service Officer ID - [id number] METABOLIC [id number] 20:02:00 Test Item Value Reference Range Interpretation [...] 347) EGFR (BEAKER) (test 89 mL/min/1.73 ESTIMA NEGRA GFR IS code = 1092) sq m NOT ACCURATE CREATININE CLEARANCE IN PREDICTING GLOMERULAR FILTRATION RATE . ESTIMATED GFR I S NOT APPLICABLE FOR DIALYSIS PATIEN TS. Employee Service Officer ID - [id number] 19:55:00 Test Item Value Reference Range Interpretation [...] within 95-100% range.CBC W/PLT COUNT & AUTO [id number] 19:42:00 Test Item Value Reference Range Interpretation [...] code = 2801) RAD, ABDOMEN/KUB, 1 VIEW [id number] 16:12:00Reason for exam:- >obstructionShould this be performed at the bedside?->Yes [facility] 1995 Sex: FFINAL REPORT X-ray abdomen, [...] identified within the proximal colon, nonspecific. Signed: Petey ReisMDReport Verified Date/Time: 01/28/2021 16:12:19 Reading Location: [facility] Radiology Reading Room RAD, ABDOMEN/KUB, 1 VIEW AP 2021-01-26 15:50:00Reason for exam:->Enteric tube placement verification [facility] 1995 Sex: [...] MDReport Verified Date/Time: 01/26/2021 15:50:41 Reading Location: [facility] Diagnostic Imaging Reading Room - [facility] 1.310.12 RAPID DRUG SCREEN, [id number] 09:55:00 Test Item Value Reference Range Interpretation [...] situations. Chain of custody not maintained. Some aofj-aub-dxhmjib medications, as well as adulterants, may cause inaccurate results. Clinical correlation should be applied. A more comprehensive drug screen or confirmation of a detected drug may be performed upon request.Employee Service Officer ID - [id number]/S, ABDOMINAL, [id number] 02:14:00Abdomen limited area? Add comment if clarification is needed.->Gall BladderReason for exam:->weight loss, abdominal pain [facility] 1995 Sex: [...] abnormality to explain the patient's pain. Signed: Sussy Chinchilla MDReport Verified Date/Time: 01/26/2021 02:14:17 SARS-COV2/RT-PCR ([facility]) 2021-01-25 00:23:00 Test Item Value Reference Range Interpretation Comments SARS-COV2/RT-PCR (test code Negative Not Detected, Negative, = [id number]) See external report for linked test SARS-COV-2 PERFORMING LAB [facility] (test code = 5941066) Negative results do not preclude SARS-CoV-2 infection [...] suspected of COVID-19 by their healthcare provider.The [employer] Xpert Xpress SARS-CoV-2 test is only for [...] 564 (g) of theAct.Fact Sheet for Healthcare Providers:https://www.Liquavista.Kodiak Networks/Documents/Xpert%20Xpress%20SARS%20CoV -2/Fact%20Sheets/302-3802%56ABON-KWN-4%20HEALTHCARE%20PROVIDERS%20FACT%20SHEET.p dfFact Sheet for Healthcare Patients:https://www.Routezilla/Documents/Xpert%20Xpress%20SARS%20CoV-2/Fact%20 Sheets/302-3801%99AMNG-BSC-3%20PATIENT%20FACT%20SHEET.pdfPerforming Laboratory:[facility] [place], [place] [address]GOEQTPISUGAED METABOLIC [id number] 19:58:00 Test Item Value Reference Range Interpretation [...] 347) EGFR (BEAKER) (test 91 mL/min/1.73 ESTIMA NEGRA GFR IS code = 1092) sq m NOT ACCURATE CREATININE CLEARANCE IN PREDICTING GLOMERULAR FILTRATION RATE . ESTIMATED GFR I S NOT APPLICABLE FOR DIALYSIS PATIEN TS. [id number] 19:58:00 Test Item Value Reference Range Interpretation Comments LIPASE (BEAKER) (test code = 749) 25 U/L 8-78 CBC W/PLT COUNT & AUTO [id number] 19:31:00 Test Item Value Reference Range Interpretation [...] code = 2801) GI PATHOGEN PROFILE BY [id number] 14:50:00 Test Item Value Reference Range Interpretation [...] Not detected Not detected (test code = 3762430) VIBRIO (PARAHAEMOLYTICUS, Not detected Not detected VULNIFICUS) (test code = 8132520) Other viruses, parasites and bacteria not targeted by this PCR panel cannot be excluded; therefore clinical correlation and follow up of serology, culture results, and other molecular studies is required. The results are not intended to be used as the sole means for clinical diagnosis or patient management decisions. This sample was tested at the [facility] using the [employer] Gastrointestinal Panel. It is FDA cleared and has been verified and approved by the [facility] for clinical use. This laboratory is CLIA-certified and College ofAmerican Pathologists (CAP)-accredited to perform high complexity testing.C. DIFFICILE GDH [id number] 13:50:00 Test Item Value Reference Range Interpretation Comments CDT TOXIN (test code Negative Negative = [id number]) CDT GDH ANTIGEN (test Negative Negative No ind ication of code = 3188625431) Clostridi um difficile infection and n o colonization. Discontinue ent dada isolation and t herapy. Testing performed by [employer] Rapid Cassette Assay. For GDH, published sensitivity of the assay is 98.7% compared to cytotoxicity testing. For Toxin AB, published sensitivity is 87.8% and specificity 99.4% compared to cytotoxicity testing.Verification of kit performance was done by the [facility] Microbiology[facility] prior to clinical use.RAPID DRUG SCREEN, [id number] 19:35:00 Test Item Value Reference Range Interpretation [...] situations. Chain of custody not maintained. Some xepl-kwi-xsnvufc medications, as well as adulterants, may cause inaccurate results. Clinical correlation should be applied. A more comprehensive drug screen or confirmation of a detected drug may be performed upon request.Employee Service Officer ID - [id number], ABDOMEN/KUB, 1 VIEW [id number] 17:14:00Reason for exam:->early satiety [facility] 1995 Sex: FFINAL REPORT EXAM: KUB CLINICAL HISTORY: Early satiety FINDINGS: Air- filled mildly prominent stomach is noted. In addition, mild to moderate retained feces is seen in the ascending colon. The regional osseous structures is unremarkable. There is no evidence of pathological calcifications or pneumoperitoneum. Signed: Sujatha Harkins MDReport Verified Date/Time: 01/20/2021 17:14:38 Reading Location: [facility] Radiology Reading Room GASTRIC EMPTYING STUDY, [id number] 15:48:00Unlisted Reason for Exam - Click Yes and Enter Reason Below->NoReason for exam:->early satietyand poor appetite [facility] 1995 Sex: FFINAL REPORT PROCEDURE: GASTRIC EMPTYING STUDY with Liquids CPT CODE: 39308 INDICATION: Early satiety and poor appetite. PROTOCOL: 0.5 mCi of Tc-99m sulfur colloid was administered orally in 240 ml of orange juice. Serial images of the upper abdomen were obtained in the ARMENIAN projection for 90 minutes. Gastric emptying half time was calculated by the linear fit method. FINDINGS: There is slowly progressive emptying of gastric contents into the small bowel. The half- emptying time iscalculated to be 130 minutes. IMPRESSION: Markedly delayed gastric emptying of a liquid meal. Signed: Berlin Wilcox MDReport Verified Date/Time: 01/20/2021 15:48:43 Reading Location: [address] [address] Reading Room SARS-COV2/RT-PCR ([facility])2021-01-20 13:08:00 Test Item Value Reference Range Interpretation Comments SARS-COV2/RT-PCR (test code Negative Not Detected, Negative, = 2499539) See external report for linked test SARS-COV-2 PERFORMING LAB [facility] (test code = 3655691) Negative results do not preclude SARS-CoV-2 infection [...] of the Act.Fact Sheet for Healthcare Pro viders:https://www.Routezilla/Documents/Xpert%20Xpress%20SARS%20CoV-2/Fact%20Sh eets/3023802%60XFWG-CJG-3%20HEALTHCARE%20PROVIDERS%20FACT%20SHEET.pdfFact Sheet for Healthcare Patients:https://www.Hermes IQ/Documents/Xpert%20Xpress%20SARS%20CoV-2/Fact%20Sheets/3023801%20SARS-COV -2%20PATIENT%20FACT%20SHEET.pdfPerforming Laboratory:[place] [address], [place] [address]SQDQS METABOLIC [id number] 05:11:00 Test Item Value Reference Range Interpretation [...] S NOT APPLICABLE FOR DIALYSIS PATIEN TS. Employee Service Officer ID - [id number] W/PLT COUNT & AUTO [id number] 04:51:00 Test Item Value Reference Range Interpretation [...] (BEAKER) (test code = 2801) COMPREHENSIVE METABOLIC [id number] 22:15:00 Test Item Value Reference Range Interpretation [...] 347) EGFR (BEAKER) (test 90 mL/min/1.73 ESTIMA NEGRA GFR IS code = 1092) sq m NOT ACCURATE CREATININE CLEARANCE IN PREDICTING GLOMERULAR FILTRATION RATE . ESTIMATED GFR I S NOT APPLICABLE FOR DIALYSIS PATIEN TS. Employee Service Officer ID - [id number], SERUM, [id number] 22:08:00 Test Item Value Reference Range Interpretation Comments TEST SERUM (BEAKER) (test Negative code = 584) CBC W/PLT COUNT & AUTO [id number] 21:53:00 Test Item Value Reference Range Interpretation [...] PERCENT (BEAKER) (test code = 2801) CT, [id number] 22:36:00Unlisted Reason for Exam - Click Yes and Enter Reason Below->NoWill this procedure require oral contrast?->No [facility] : 1995 Sex: FFINAL REPORT EXAM: CT ABDOMEN AND PELVIS WITH CONTRAST CLINICAL INDICATION: Abdominal pain, acute, nonlocalized TECHNIQUE: CT abdomen and pelvis was performed, following the administration of contrast, as per department protocol. Axial, sagittal, and coronal reconstructions were obtained. IV CONTRAST: 100 cc of Isovue 300 ORAL CONTRAST: Not administered, limiting the sensitivity ofthis exam for evaluation of bowel, retroperitoneum, and intraabdominal fluid collections. RADIATION DOSE REDUCTION:This exam was performed according to the departmental dose-optimization program which includes automated exposure control, adjustment of the mA and/or kV according to patient size and/or use of iterative reconstruction technique. COMPARISON: None FINDINGS: LOWER CHEST: No pathologic process in imaged portion of lower chest LIVER: No pathologic process. GALLBLADDER: No pathologic process. BILE DUCTS: No pathologic process. PANCREAS:No pathologic process. SPLEEN: No pathologic process. ADRENALS:No pathologic process. KIDNEYS AND URETERS: No pathologic process. URINARY BLADDER:No pathologic process. GASTROINTESTINAL TRACT:No pathologic process. APPENDIX:No inflammatory changes in regionof appendix. LYMPH NODES:No lymphadenopathy. PERITONEUM/MESENTERY:No free air, significant free fluid, mass or fluid collection. VESSELS:No vascular abnormality. ADDITIONAL RETROPERITONEAL FINDINGS:None. REPRODUCTIVE ORGANS:The uterus shows heterogeneous enhancement. There is small amount of fluid in the endometrial cavity. Unless the patient is menstruating, [...] Mejia Verified Date/Time: 12/31/2020 22:36:46 Reading Location: [address] Reading Room /FREE T4 IF [id number] 19:26:00 Test Item Value Reference Range Interpretation Comments THYROID STIMULATING HORMONE 0.670 uIU/mL 0.350-5.500 (BEAKER) (test code = 772) Employee Service Officer ID - [id number] METABOLIC [id number] 19:07:00 Test Item Value Reference Range Interpretation [...] S NOT APPLICABLE FOR DIALYSIS PATIEN TS. Employee Service Officer ID - [id number] 19:07:00 Test Item Value Reference Range Interpretation Comments LIPASE (BEAKER) (test code = 749) 39 U/L 8-78 Employee Service Officer ID - [id number] DRUG SCREEN, [id number] 19:05:00 Test Item Value Reference Range Interpretation [...] situations. Chain of custody not maintained. Some ljnl-fyl-nqufzbo medications, as well as adulterants, may cause inaccurate results. Clinical correlation should be applied. A more comprehensivedrug screen or confirmation of a detected drug may be performed upon request.Employee Service Officer ID - [id number] W/ REFLEX URINE [id number] 18:51:00 Test Item Value Reference Range Interpretation [...] = 516) SOURCE(BEAKER) (test code = 2795) Employee Service Officer ID - [auto]Employee Service Officer ID - techPREGNANCY SCREEN, [id number] 18:45:00 Test Item Value Reference Range Interpretation Comments TEST URINE (BEAKER) (test Negative code = 583) CBC W/PLT COUNT & AUTO [id number] 18:38:00 Test Item Value Reference Range Interpretation [...] = 2801) UA RFLX MICR CULT IF [id number] 00:31:00 Test Item Value Reference Range Interpretation Comments UA COLOR (test code = YELLOW DESCRIPT YELLOW COLU) UA APPEARANCE (test TURBID CLEAR A code = APPU) (1+)HAZY-CLDY DESCRIPT UA GLUCOSE DIPSTICK NORMAL (0) See_Comment [Automa negra (test code = DGLUU) mg/dL message] The system which generated this result transmit negra reference range : 0 (NORMAL). The reference range was not used to interpret this result as normal/abnormal . UA BILIRUBIN DIPSTICK NEGATIVE (0.0) See_Comment [Au tomated (test code = BILU) mg/dL message] The system which generated this result transmit negra reference range : (NEG) 0. The reference range was not used to interpret this result as normal/abnormal . UA KETONE DIPSTICK NEGATIVE (0) See_Comment [Automat ed (test code = KETU) mg/dL message] The system which generated this result transmit negra reference range : (NEG) 0. The reference range was not used to interpret this result as normal/abnormal . UA SPECIFIC GRAVITY 1.028 SG 1.001-1.035 (test code = SGU) UA BLOOD DIPSTICK NEGATIVE (0.00) See_Comment [Autom ated (test code = MARCELINO) mg/dL message] T he system which generated this result transmit negra reference range : 0 (NEG). The reference range was not used to interpret this result as normal/abnormal . UA PH DIPSTICK (test 6.5 pH UNITS 4.6-8.0 code = JESUSITA) UA PROTEIN DIPSTICK 70 (1+) mg/dL See_Comment A [Autom ated (test code = PROU) message] The system which generated this result transmit negra reference range : <30 (1+). The reference range was not used to interpret this result as normal/abnormal . UA UROBILINIOGEN NORMAL (0) See_Comment [Automated DIPSTICK (test code = mg/Dl messag e] The URO) system which generated this result transmit negra reference range : <2.0 (1+). The reference range was not used to interpret this result as normal/abnormal . UA NITRITE DIPSTICK NEGATIVE (0) NEG (test code = RAJAT) SCREEN UA LEUKOCYTE ESTERASE 25 Leuk/mcL See_Comment A [Auto mated DIPSTICK (test code = messag e] The LEUU) system which generated this result transmit negra reference range : (NEG) 0. The reference [...] for culture: RiskForSepsis-no oth srcCoronavirus 2019 nCoV [id number] 23:23:00 Test Item Value Reference Range Interpretation Comments Coronavirus 2019 nCoV Bedside (test Negative Neg code = [id number]) Specimen comments: nasalBASIC METABOLIC [id number] 23:04:00 Test Item Value Reference Range Interpretation [...] (test code = MG Index/DL The system [employer] HEMINDEX) generated this result transmit negra reference range : 1 NORMAL. The reference range was not used to interpret this result as normal/abnormal . INDEX ICTERIC (test 1 NORMAL <2 MG See_Comment [Auto mated message] code = ICTINDEX) Index/DL The system which generated this result transmit negra reference range : 1 NORMAL. The reference range was not used to interpret this result as normal/abnormal . INDEX LIPEMIA (test 1 NORMAL <50 MG See_Comment [Aut omated message] code = LIPINDEX) Index/DL The system which generated this result transmit negra reference range : 1 NORMAL. The reference range was not used to interpret this result as normal/abnormal . Specimen comments: [facility] FUNCTION [id number] 23:04:00 Test Item Value Reference Range Interpretation [...] 45-117 N code = ALKP) Specimen comments: [id number] 23:04:00 Test Item Value Reference Range Interpretation Comments LIPASE (test code = LIP) 120 Unit/L 114-286 N Specimen comments: [id number] 23:04:00 Test Item Value Reference Range Interpretation [...] change s in troponin levelscharacter istic of [place]. Specimen comments: ccLACTIC [id number] 23:02:00 Test Item Value Reference Range Interpretation Comments LACTIC ACID (test code = LACT) 1.0 mmol/L 0.4-2.0 N Specimen comments: ccBASIC METABOLIC [id number] 22:59:00 Test Item Value Reference Range Interpretation [...] (test code = MG Index/DL The system [employer]) generated this result transmit negra reference range : 1 NORMAL. The reference range was not used to interpret this result as normal/abnormal . INDEX ICTERIC (test 1 NORMAL <2 MG See_Comment [Auto mated message] code = ICTINDEX) Index/DL The system which generated this result transmit negra reference range : 1 NORMAL. The reference range was not used to interpret this result as normal/abnormal . INDEX LIPEMIA (test 1 NORMAL <50 MG See_Comment [Aut omated message] code = LIPINDEX) Index/DL The system which generated this result transmit negra reference range : 1 NORMAL. The reference range was not used to interpret this result as normal/abnormal . Specimen comments: [facility] [id number] 22:59:00 Test Item Value Reference Range Interpretation [...] Unit/L 45-117 code = ALKP) Specimen comments: [id number] 22:59:00 Test Item Value Reference Range Interpretation Comments LIPASE (test code = LIP) 120 Unit/L 114-286 N Specimen comments: [id number] 22:59:00 Test Item Value Reference Range Interpretation Comments TROPONIN-I (test code = TROPI) NG/ML 0.000-0.045 Specimen comments[facility] [id number] 22:51:00 Test Item Value Reference Range Interpretation Comments HCG SERUM QUAL (test code = HCGQL) NEG SCREEN NEG Specimen comments: ccCBC W/AUTO [id number] 22:48:00 Test Item Value Reference Range Interpretation [...] NRBC#) Specimen comments: cc- XR CHEST 1 [id number] 21:04:00 [facility] : 1995 Sex: F FAX: Joan Lucas [phone] [place]: [address] St: PRE Patient Name: MARION SPENCER Unit No: [id number] EXAMS: CPT CODE: [id number] XR CHEST 1 V 92075 Chest Radiograph History: CODE SEPSIS Comparison: None at this time Location: H45 A single frontal view of the chest is submitted. The right cardiophrenic region is not well assessed on this exam. The heart is within normal limits in size. Pulmonary vasculature is unremarkable. The visualized lung bearden appear to be free of disease. The bones appear unremarkable. IMPRESSION: There is no radiographic evidence of acute cardiopulmonary disease. at 2103 Reported and signed by: Dannie Coronado MD CC: Joan PRESLEY Dictated Date/Time: 12/29/2020 (2103)Technologist: Daksha Palomo Transcribed Date/Time: 12/29/2020 (2103) By: EsmePMT Orig Print D/T: S: 12/29/2020 (2106) GLADYS Gutiérrez NAME: MARION SPENCER [address] [place] [address] PHYS: Joan Moreno, [place] [address] : 1995 AGE: 25 SEX: F LOC: B.ERS PHONE #: [phone] EXAM DATE: 12/29/2020 STATUS: PRE ER FAX #: [phone] RAD NO: DC Dt: PAGE 1 Signed ReportCBC W/PLT COUNT & AUTO [id number] 13:09:00 Test Item Value Reference Range Interpretation [...]
[2022-10-18 22:24] LABS: Hematocrit 36.6 % (36.0-45.0); Lymphocytes % 22.5 % (15.3-44.8); MCV 96.7 fL (80-100); MPV 7.1 fL (7.6-11.3); RBC Red Blood Cell Count 3.78 M/uL (3.86-4.86)
[2022-10-18 22:40] LABS: Albumin 3.7 g/dL (3.4-5.0); Bilirubin Total 0.4 mg/dL (0.2-1.0); Potassium 3.2 mmol/L (3.5-5.1); Protein, Total 7.3 g/dL (6.4-8.2)
[2022-10-18 22:42] LABS: Urine Blood 1+ (Negative); Urine Glucose Negative (Negative); Urine Protein 3+ (Negative); Urine Specific Gravity >=1.030 (1.005-1.030)
[2022-10-18] MEDS ORDERED: KETOROLAC 30 MG/ML INJ ONE (22:42)
[2022-10-18] MEDS ORDERED: NA CHLORIDE 0.9% 1,000 ML ONE (22:42)
[2022-10-18] MEDS ORDERED: ONDANSETRON 4 MG/2 ML VIAL ONE (22:42)
[2022-10-18 22:53] LABS: Urine Specific Gravity/Preg >1.030 (1.005-1.030)
[2022-10-18 22:56] LABS: Urine Bacteria <20 /HPF (<20); Urine RBC <5 /HPF (None Seen)
--- NOTE | 2022-10-19 00:21 | ER ---
Nurse's Notes [facility] Name: Mary Spencer Age: 27 yrs Sex: Female : 1995 Arrival Date: 10/18/2022 Time: 20:00 Bed 16 Private MD: Diagnosis: UTI/ Urinary tract infection, site not specified Presentation: 10/18 20:17 Chief complaint: Patient states: "I have a really bad kidney infection. I have had them vc1 2-3 times a month since I was 13. This one is really bad, it is probably the worst one I have ever had. The pain is in the middle of my back and goes all the way down I feel like I have to pee put it hurts and rene.". Coronavirus screen: Vaccine status: Patient reports receiving the 1st dose of the Covid vaccine. Pfizer. Ebola Screen: No symptoms or risks identified at this time. Risk Assessment: Do you want to hurt yourself or someone else? Patient reports no desire to harm self or others. Onset of symptoms was October 18, 2022. 20:17 Method Of Arrival: Wheelchair vc1 20:17 Acuity: ROSALIE 3 vc1 20:25 Initial Sepsis Screen: Does the patient meet any 2 criteria? HR > 90 bpm. No. Patient's vc1 initial sepsis screen is negative. Does the patient have a suspected source of infection? Yes: Dysuria/Frequency/Urgency/UTI. Triage Assessment: 20:21 General: Appears uncomfortable, slender, Behavior is calm, cooperative, appropriate for vc1 age. Pain: Complains of pain in lumbar area Pain radiates to groin, right femoral area and left femoral area Pain currently is 10 out of 10 on a pain scale. EENT: No deficits noted. Neuro: No deficits noted. Cardiovascular: No deficits noted. Respiratory: Airway is patent Respiratory effort is even, unlabored, Respiratory pattern is regular, symmetrical. GI: No deficits noted. No signs and/or symptoms were reported involving the gastrointestinal system. : Reports burning with urination, pain with urination, urinary frequency. Derm: No deficits noted. No signs and/or symptoms reported regarding the dermatologic system. Musculoskeletal: No deficits noted. No signs and/or symptoms reported regarding the musculoskeletal system. 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 - Social history:: Smoking status: Reported history of juuling and/or vaping. - Family history:: not pertinent. Screenin:25 Abuse screen: Denies threats or abuse. Denies injuries from another. Nutritional aa9 screening: No deficits noted. Tuberculosis screening: No symptoms or risk factors identified. 10/19 00:37 [facility] ED Fall Risk Assessment (Adult) History of falling in the last 3 months, aa9 including since admission No falls in past 3 months (0 pts) Confusion or Disorientation No (0 pts) Intoxicated or Sedated No (0 pts) Impaired Gait No (0 pts) Mobility Assist Device Used No (0 pt) Altered Elimination Yes (1 pt) Score/Fall Risk Level 0 - 2 = Low Risk. Assessment: 10/18 23:23 General: Appears uncomfortable, slender, Behavior is cooperative, anxious. Pain: aa9 Complains of pain in lower back and groin Noted to be crying, Also complains of nausea. Neuro: Level of Consciousness is awake, alert, obeys commands, Oriented to person, place, time, situation. Cardiovascular: Patient's skin is warm and dry. Respiratory: Airway is patent Respiratory effort is even, unlabored. GI: No signs and/or symptoms were reported involving the gastrointestinal system. : Reports bedwetting, burning with urination, urinary frequency. Derm: Skin is intact, is healthy with good turgor. 10/19 00:37 GI: Bowel sounds present X 4 quads. Abd is soft and non tender. aa9 00:38 Reassessment: Patient appears in no apparent distress at this time. Patient and/or aa9 family updated on plan of care and expected duration. Pain level reassessed. Patient is alert, oriented x 3, equal unlabored respirations, skin warm/dry/pink. Patient denies pain at this time. Vital Signs: 10/18 20:17 Weight 45.36 kg; Height 5 ft. 1 in. (154.94 cm); Pain 10/; vc1 20:22 BP 107 / 76; Pulse 123; Resp 15; Temp 98.4(O); Pulse Ox 96% ; vc1 20:17 Body Mass Index 18.89 (45.36 kg, 154.94 cm) vc1 ED Course: 20:00 Patient arrived in ED. ja2 20:19 Triage completed. vc1 20:22 Arm band placed on right wrist. vc1 20:44 David Adler MD is Attending Physician. rt 21:40 Gely Hill, BRUNILDA is Primary Nurse. aa9 22:37 Inserted saline lock: 18 gauge in right antecubital area, using aseptic technique. aa9 Blood collected. 22:45 UA MICROSCOPIC Sent. as7 23:09 CT Abd/Pelvis - IV Contrast Only In Process Unspecified. EDMS 23:25 Patient has correct armband on for positive identification. Bed in low position. Call aa9 light in reach. Side rails up X2. 23:26 No provider procedures requiring assistance completed. aa9 10/19 00:37 IV discontinued, intact, bleeding controlled, No redness/swelling at site. Pressure aa9 dressing applied. Administered Medications: 10/18 22:49 Drug: Ketorolac 30 mg Route: IVP; Site: right antecubital; aa9 10/19 00:38 Follow up: Response: No adverse reaction aa9 10/18 22:49 Drug: NS 0.9% 1000 ml Route: IV; Rate: 1 bolus; Site: right antecubital; aa9 10/19 00:38 Follow up: Response: No adverse reaction; IV Status: Completed infusion; IV Intake: aa9 1000ml 10/18 22:49 Drug: Zofran (Ondansetron) 4 mg Route: IVP; Site: right antecubital; aa9 10/19 00:38 Follow up: Response: No adverse reaction aa9 Medication: 10/18 23:25 VIS not applicable for this client. aa9 Intake: 10/19 00:38 IV: 1000ml; Total: 1000ml. aa9 Outcome: 00:21 Discharge ordered by . rt 00:37 Discharged to home ambulatory. aa9 00:37 Condition: stable 00:37 Discharge instructions given to patient, Instructed on discharge instructions, follow up and referral plans. medication usage, Demonstrated understanding of instructions, follow-up care, medications, Prescriptions given X 1. 00:44 Patient left the ED. aa9 Signatures: Dispatcher [employer] EDMS Tiarra Lynne Vanessa, RN RN vc1 Gely Hill RN RN aa9 David Adler MD MD rt Senkyrik, Autumn as7 Corrections: (The following items were deleted from the chart) 10/18 20:21 20:19 Home Meds: None; vc1 vc1
--- NOTE | 2022-10-19 00:21 | EDPHYS ---
Physician Documentation [facility] Name: Mary Spencer Age: 27 yrs Sex: Female : 1995 Arrival Date: 10/18/2022 Time: 20:00 Bed 16 Private MD: ED Physician David Adler HPI: 10/19 00:22 This 27 yrs old Female presents to ER via Wheelchair with complaints of Possible Kidney rt Stone. 00:22 The patient presents with urinary symptoms, dysuria. Onset: The symptoms/episode rt began/occurred 2 day(s) ago. Modifying factors: The symptoms are alleviated by nothing, the symptoms are aggravated by nothing. Associated signs and symptoms: Pertinent positives: back pain. Severity of symptoms: At their worst the symptoms were moderate. General has had multiple episodes of urinary tract infections presents to the ED with a low back pain as well as a suprapubic pain with dysuria. She states that this is consistent with prior episodes of UTIs. The patient was referred to a urologist, has not yet seen a urologist. Has not had any imaging for this. She denies other acute complaints at this time, symptoms are moderate severity, no other aggravating alleviating factors.. 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 - Social history:: Smoking status: Reported history of juuling and/or vaping. - Family history:: not pertinent. ROS: 10/19 00:22 Positive for urinary frequency, burning with urination. rt Constitutional: Negative for fever, chills, and weight loss. Eyes: Negative for injury, pain, redness, and discharge, Cardiovascular: Negative for chest pain, palpitations, and edema, Respiratory: Negative for shortness of breath, cough, wheezing, and pleuritic chest pain, Abdomen/GI: Negative for abdominal pain, nausea, vomiting, diarrhea, and constipation, MS/Extremity: Negative for injury and deformity, Skin: Negative for injury, rash, and discoloration, Neuro: Negative for headache, weakness, numbness, tingling, and seizure, Psych: Negative for depression, anxiety, suicide ideation, homicidal ideation, and hallucinations. Back: Positive for pain at rest, Negative for injury or acute deformity. Exam: 00:22 Constitutional: This is a well developed, well nourished patient who is awake, alert, rt and in no acute distress. Head/Face: Normocephalic, atraumatic. Eyes: Pupils equal round and reactive to light, extra-ocular motions intact. Lids and lashes normal. Conjunctiva and sclera are non-icteric and not injected. Cornea within normal limits. Periorbital areas with no swelling, redness, or edema. Chest/axilla: Normal chest wall appearance and motion. Nontender with no deformity. No lesions are appreciated. Cardiovascular: Regular rate and rhythm with a normal S1 and S2. No gallops, murmurs, or rubs. Normal PMI, no JVD. No pulse deficits. Respiratory: Lungs have equal breath sounds bilaterally, clear to auscultation and percussion. No rales, rhonchi or wheezes noted. No increased work of breathing, no retractions or nasal flaring. Skin: Warm, dry with normal turgor. Normal color with no rashes, no lesions, and no evidence of cellulitis. MS/ Extremity: Pulses equal, no cyanosis. Neurovascular intact. Full, normal range of motion. Neuro: Awake and alert, GCS 15, oriented to person, place, time, and situation. Cranial nerves II-XII grossly intact. Motor strength 5/5 in all extremities. Sensory grossly intact. Cerebellar exam normal. Normal gait. Psych: Awake, alert, with orientation to person, place and time. Behavior, mood, and affect are within normal limits. 00:22 Abdomen/GI: Mild suprapubic tenderness without guarding, rebound, distention.. 00:22 Back: Mild paraspinal lumbar tenderness, no costovertebral angle tenderness. Vital Signs: 10/18 20:17 Weight 45.36 kg; Height 5 ft. 1 in. (154.94 cm); Pain 10/10; vc1 20:22 BP 107 / 76; Pulse 123; Resp 15; Temp 98.4(O); Pulse Ox 96% ; vc1 20:17 Body Mass Index 18.89 (45.36 kg, 154.94 cm) vc1 MDM: 21:50 Patient medically screened. rt 10/19 00:22 Differential diagnosis: UTI, ureterolithiasis, acute kidney stone, appendicitis. Data rt reviewed: vital signs, nurses notes, lab test result(s), radiologic studies. I considered the following discharge prescriptions or medication management in the emergency department Medications were administered in the Emergency Department. See MAR. Response to treatment: the patient's symptoms have mildly improved after treatment. 10/18 21:06 Order name: CBC with Diff; Complete Time: 22:58 rt 10/18 21:06 Order name: CMP; Complete Time: 22:58 rt 10/18 21:06 Order name: UA MICROSCOPIC; Complete Time: 22:58 rt 10/18 21:07 Order name: Lactate w/ 2H reflex if indic.; Complete Time: 22:58 rt 10/18 22:42 Order name: Urine Dipstick-Ancillary; Complete Time: 22:58 EDMS 10/18 22:45 Order name: Urine --Ancillary (enter results); Complete Time: 22:58 mw2 10/18 21:06 Order name: Urine Dipstick-Ancillary (obtain specimen); Complete Time: 22:44 rt 10/18 21:06 Order name: Urine Test (obtain specimen); Complete Time: 22:44 rt 10/18 22:04 Order name: CT Abd/Pelvis - IV Contrast Only rt 10/18 22:59 Order name: Urine Culture EDMS Administered Medications: 10/18 22:49 Drug: Ketorolac 30 mg Route: IVP; Site: right antecubital; aa10/19 00:38 Follow up: Response: No adverse reaction 10/18 22:49 Drug: NS 0.9% 1000 ml Route: IV; Rate: 1 bolus; Site: right antecubital; 10/19 00:38 Follow up: Response: No adverse reaction; IV Status: Completed infusion; IV Intake: aa9 1000ml 10/18 22:49 Drug: Zofran (Ondansetron) 4 mg Route: IVP; Site: right antecubital; 10/19 00:38 Follow up: Response: No adverse reaction aa9 Disposition Summary: 10/19/22 00:21 Discharge Ordered Location: Home rt Problem: an ongoing problem rt Symptoms: have improved rt Condition: Stable rt Diagnosis - UTI/ Urinary tract infection, site not specified rt Followup: rt - With: Private Physician - When: 2 - 3 days - Reason: Discharge Instructions: - Discharge Summary Sheet rt - Urinary Tract Infection, Adult rt Forms: - Medication Reconciliation Form rt - Thank You Letter rt - Antibiotic Education rt - Prescription Opioid Use rt Prescriptions: - Macrobid 100 mg Oral Capsule - take 1 capsule by ORAL route every 12 hours for 7 days; 14 capsule; Refills: 0, rt Product Selection Permitted Signatures: Dispatcher [employer] EDRosi Chanel RN RN vc1 Gely Hill RN RN aa9 David Adler MD MD rt Corrections: (The following items were deleted from the chart) 10/18 20:21 20:19 Home Meds: None; vc1 vc1
[2022-10-19 01:26] VITALS: BP 107/76; TEMP 98.4; O2SAT 96
--- NOTE | 2022-10-19 19:56 | RAD REPORT ---
EXAM DESCRIPTION: CT Abdomen and Pelvis With Intravenous Contrast CLINICAL HISTORY: The patient is 27 years old and is Female; abdominal pain TECHNIQUE: Axial computed tomography images of the abdomen and pelvis with intravenous contrast. S agittal and coronal reformatted images were created and reviewed. This CT exam was performed using one or more of the following dose reduction techniques: automated exposure control, adjustment of t he mA and/or kV according to patient size, and/or use of iterative reconstruction technique. COMPARISON: No relevant prior studies available. FINDINGS: LUNG BASES: Unremarkable. No mass. No consolidation. ABDOMEN: LIVER: Unremarkable. No mass. GALLBLADDER AND BILE DUCTS: The gallbladder is slightly contracted. No calcified gallstones are seen. PANCREAS: No ductal dilation. No mass. SPLEEN: Unremarkable. ADRENALS: Unremarkable. No mass. KIDNEYS AND URETERS: Unremarkable. The kidneys enhance symmetrically. No obstructing renal or ur eteral calculus is seen. No hydronephrosis or hydroureter. No perinephric fluid or stranding. STOMACH AND BOWEL: The stomach is distended with food contents and air. The small bowel is silvana l in caliber. A moderate amount stool is present throughout colon. There is no mucosal thickening or evidence of obstruction. PELVIS: APPENDIX: No findings to suggest acute appendicitis. BLADDER: The bladder is decompressed. Mild diffuse bladder wall thickening is present. REPRODUCTIVE: Unremarkable as visualized. ABDOMEN and PELVIS: INTRAPERITONEAL SPACE: Unremarkable. No free air. No significant fluid collection. BONES/JOINTS: No acute fracture. SOFT TISSUES: The soft tissues are normal. VASCULATURE: Calcified phleboliths are present within the pelvis. No abdominal aortic aneurysm . LYMPH NODES: Unremarkable. No enlarged lymph nodes. IMPRESSION: Mild diffuse bladder wall thickening which may be secondary to incomplete distention; ho wever, cystitis is within the differential. Electronically signed by: Estefania Cherry MD 10/18/2022 11:48 PM PATHOLOGY LABORATORY TECHNOLOGIST Due to temporary technical issues with the PACS/Fluency reporting system, reports are being signed by the in house radiologists without review as a courtesy to insure prompt reporting. The interpreting radiologist is fully responsible for the content of the report.
== END 2022-10-19 00:44 | disposition home or self-care (01) ==
LOC: ER 19:57
DX: N39.0 Urinary tract infection, site not specified (principal)
CPT/HCPCS: 96361; 87088; 85025; 87086; 36415; 81025; 83605; 80053; 74177; 96375; 96374; 99284; Q9967; J7030; J2405; 81003; 81015